=== PATIENT | female | born 1975 | race Caucasian/White ===

== ENCOUNTER 2021-05-25 22:24 | Inpatient (IN) | payer OTHER ==
[~2021-05-25] VITALS: Ht 180.3 cm; Wt 111.0 kg
[2021-05-25 23:03] LABS: BASOPHILS ABSOLUTE AUTO 0.05 K/mm3 (0.00-0.23); BASOPHILS PERCENT AUTO 1 % (0-2); EOSINOPHILS ABSOLUTE AUTO 0.06 K/mm3 (0.00-0.68); EOSINOPHILS PERCENT AUTO 1 % (0-6); Hematocrit 27.8 % (33.0-51.0); Hemoglobin 8.4 g/dL (11.5-16.0); IMMATURE GRAN ABSOLUTE AUTO 0.18 K/mm3 (0.00-0.10); IMMATURE GRAN PERCENT AUTO 2 % (0-1); LYMPHOCYTES ABSOLUTE AUTO 1.12 K/mm3 (0.84-5.20); LYMPHOCYTES PERCENT AUTO 14 % (21-46); MONOCYTES ABSOLUTE AUTO 0.77 K/mm3 (0.16-1.47); MONOCYTES PERCENT AUTO 10 % (4-13); Mean Corpuscular HGB 36.5 pg (26.0-34.0); Mean Corpuscular HGB Conc 30.2 g/dL (31.5-36.5); Mean Corpuscular Volume 121 fL (80-100); Mean Platelet Volume 11.3 fL (9.1-12.4); NEUTROPHILS ABSOLUTE AUTO 5.89 K/mm3 (1.96-9.15); NEUTROPHILS PERCENT AUTO 73 % (41-73); NRBC ABSOLUTE 0.04 K/mm3 (0.00-0.02); NRBC Auto 0.5 /100 WBC (0.0-0.2); Platelet Count 202 K/mm3 (150-400); RDW Coefficient Variation 15.2 % (11.7-14.2); RDW Standard Deviation 67.6 fL (35.1-46.3); White Blood Cell Count 8.07 K/mm3 (4.00-11.30)
[2021-05-25 23:16] LABS: Alanine Aminotransfer (ALT/SGP 62 U/L (12-78); Albumin, Blood 2.6 g/dL (3.4-5.0); Albumin/Globulin Ratio 0.6 (0.8-1.8); Alk Phos 273 U/L (50-136); Anion Gap 15 mmol/L (6-16); Aspartate Aminotrans (AST/SGOT 189 U/L (12-37); Bilirubin, Total 6.3 mg/dL (0.1-1.0); Blood Urea Nitrogen 5 mg/dL (8-24); CO2, Blood 23 mmol/L (21-32); Calcium, Blood 8.9 mg/dL (8.5-10.1); Chloride, Blood 100 mmol/L (98-108); Creatinine, Blood 0.56 mg/dL (0.40-1.00); Ethanol (Alcohol), Blood, Med 11 mg/dL; Globulin, Blood 4.1 g/dL (2.2-4.0); Glomerular Filtration Rate >60 (60-); Glucose, Blood 109 mg/dL (70-99); Potassium, Blood 3.6 mmol/L (3.5-5.5); Sodium, Blood 138 mmol/L (136-145); Total Protein, Blood 6.7 g/dL (6.4-8.2)
[2021-05-25] MEDS ORDERED: NAPROXEN250 M1 PO (23:31)
[2021-05-25] MEDS ORDERED: GABA100 PO (23:31)
[2021-05-25] MEDS ORDERED: METO25ER PO (23:31)
[2021-05-25] MEDS ORDERED: ERGO400 PO (23:31)
[2021-05-25] MEDS ORDERED: FURO80 PO (23:32)
[2021-05-25] MEDS ORDERED: FOLI1 PO (23:32)
[2021-05-25] MEDS ORDERED: PRENATAL TABLE1 EAC2 PO (23:32)
[2021-05-26 05:11] LABS: Influenza A, PCR NEGATIVE (NEGATIVE); Influenza B, PCR NEGATIVE (NEGATIVE); Resp Syncytial Virus, PCR NEGATIVE (NEGATIVE); SARS-Cov-2 (COVID-19) PCR, MMC NEGATIVE (NEGATIVE)
[2021-05-26 05:17] LABS: Albumin, Blood 2.4 g/dL (3.4-5.0); Percent Saturation 87.9 % (15.0-50.0)
--- NOTE | 2021-05-26 05:33 | NUR ---
PT ADMITTED TO FLOOR FROM [facility]. PT WAS ABLE TO STAND AND TRANSFER HERSELF TO THE PCU BED. PT'S SKIN COLOR IN JAUNDICED, HER SCHLERA IS JAUNDICED IN COLOR. PT'S ABDOMEN IS DISTENDED, FIRM, TENDER TO PALPATION. PT REPORTS SHE HAS BEEN HAVING LOOSE STOOLS AT HOME, POOR APPETITE, AND HAS BEEN DECREASING HER ETOH INTAKE, FROM 1 GALLON OF WHISKEY A DAY, TO 1 PINT OF WHISKEY A DAY. PT HAS A HISTORY OF LUPUS. SEIZURE PADS IN PLACE. IV FLUIDS INFUSING TO R HAND IV SITE WITHOUT COMPLICATIONS. LS ARE CLEAR THROUGHOUT. BT'S ARE PRESENT. NO EDEMA TO BLE. PT REPORTS HISTORY OF N/T TO BILATERAL FEET, BLE, AND FINGER TIPS. REVIEWED CALL LIGHT AND ORIENTED TO ROOM. BED ALARM ON FOR SAFETY. FLUIDS AT BEDSIDE.
[2021-05-26] MEDS ORDERED: VITAMIN D5000 UNIT PO (05:47)
[2021-05-26] MEDS ORDERED: PANT40 PO (05:56)
[2021-05-26] MEDS ORDERED: OXYC15ER PO (05:57)
[2021-05-26] MEDS ORDERED: SUCR1 PO (05:59)
[2021-05-26] MEDS ORDERED: ONDA4ODT PO (06:01)
[2021-05-26] MEDS ORDERED: ALBU90OI INH (06:03)
--- NOTE | 2021-05-26 07:12 | NUR ---
SHIFT SUMMARY - MEDICATED X1 WITH 1MG ATIVAN FOR ETOH WITHDRAWAL. OTHERWISE NO ACUTE CHANGES SINCE ADMIT AT 0533. FLUIDS AT BEDSIDE. BED IN LOW POSITION. BED ALARM ON FOR PT SAFETY. REPORT GIVEN THIS AM TO ONCOMING SHIFT.
[2021-05-26 07:39] LABS: International Normalized Ratio 1.19; Prothrombin Time Results 12.4 Sec (9.7-11.5)
[2021-05-26 07:40] LABS: Alanine Aminotransfer (ALT/SGP 51 U/L (12-78); Albumin, Blood 2.4 g/dL (3.4-5.0); Albumin/Globulin Ratio 0.6 (0.8-1.8); Alk Phos 237 U/L (50-136); Anion Gap 11 mmol/L (6-16); Aspartate Aminotrans (AST/SGOT 163 U/L (12-37); Bilirubin, Direct 3.9 mg/dL (0.0-0.3); Bilirubin, Indirect 1.6 mg/dL (0.1-0.7); Bilirubin, Total 5.5 mg/dL (0.1-1.0); Blood Urea Nitrogen 6 mg/dL (8-24); Bun/Creatinine Ratio 11.7 (12.0-20.0); CO2, Blood 26 mmol/L (21-32); Calcium, Blood 8.3 mg/dL (8.5-10.1); Chloride, Blood 100 mmol/L (98-108); Creatinine, Blood 0.51 mg/dL (0.40-1.00); Globulin, Blood 3.9 g/dL (2.2-4.0); Glomerular Filtration Rate >60 (60-); Glucose, Blood 110 mg/dL (70-99); Magnesium, Blood 1.8 mg/dL (1.6-2.4); Phosphorus, Blood 1.8 mg/dL (2.5-4.9); Potassium, Blood 3.7 mmol/L (3.5-5.5); Sodium, Blood 137 mmol/L (136-145); Total Protein, Blood 6.3 g/dL (6.4-8.2)
[2021-05-26 08:48] LABS: BASOPHILS ABSOLUTE AUTO 0.05 K/mm3 (0.00-0.23); BASOPHILS PERCENT AUTO 1 % (0-2); EOSINOPHILS PERCENT AUTO 2 % (0-6); Hematocrit 26.6 % (33.0-51.0); IMMATURE GRAN ABSOLUTE AUTO 0.15 K/mm3 (0.00-0.10); IMMATURE GRAN PERCENT AUTO 3 % (0-1); LYMPHOCYTES ABSOLUTE AUTO 1.03 K/mm3 (0.84-5.20); LYMPHOCYTES PERCENT AUTO 17 % (21-46); MONOCYTES ABSOLUTE AUTO 0.45 K/mm3 (0.16-1.47); MONOCYTES PERCENT AUTO 7 % (4-13); Mean Corpuscular HGB 36.5 pg (26.0-34.0); Mean Corpuscular HGB Conc 30.1 g/dL (31.5-36.5); Mean Corpuscular Volume 122 fL (80-100); NEUTROPHILS ABSOLUTE AUTO 4.33 K/mm3 (1.96-9.15); NEUTROPHILS PERCENT AUTO 71 % (41-73); NRBC ABSOLUTE 0.03 K/mm3 (0.00-0.02); NRBC Auto 0.5 /100 WBC (0.0-0.2); Platelet Count 175 K/mm3 (150-400); RDW Coefficient Variation 15.2 % (11.7-14.2); RDW Standard Deviation 67.8 fL (35.1-46.3); Red Blood Cell Count 2.19 M/mm3 (3.80-5.20); White Blood Cell Count 6.11 K/mm3 (4.00-11.30)
[2021-05-26 10:20] LABS: Source, Urine Clean Catch
[2021-05-26 10:31] LABS: Appearance, Urine Clear (Clear); Blood, Urine Neg (Neg); Color, Urine Amber (P-Yellow); Glucose Qualitative, Urine Neg (Neg); Ketones, Urine 2+ (Neg); Leukocyte Esterase, Urine Neg (Neg); Nitrite, Urine Neg (Neg); Protein, Urine 1+ (Neg); Urobilinogen, Urine 3+ (Normal)
[2021-05-26 10:39] LABS: Bilirubin, Urine 3+ (Neg)
--- NOTE | 2021-05-26 15:41 | NUR ---
2L O2 VIA NC PLACED FOR SP02 CONSISTENTLY <90% WHILE PT IS SLEEPING. PT'S VIVIEN AT BEDSIDE. DR HAMILTON CONTACTED TO COME REVIEW CTA RESULTS WHEN AVAILABLE.
--- NOTE | 2021-05-26 18:17 | NUR ---
PT STATES SHE IS FEELING BETTER THIS EVENING. PT HAS BEEN GIVEN 2 DOSES OF LIBRIUM T/O THE DAY FOR ALCOHOL W/D. TOLERATED WELL. BLANC CATHETER FOR I&O AND POWERGILDE IV PLACED TODAY. PT WENT TO CTA OF ABD, DR HAMILTON NOTIFIED OF RESULTS AND SHE SPOKE WITH THE PT AND PT'S AT BEDSIDE. PT HAS HAD LARGE OUTPUT OF URINE T/O SHIFT. NO ACUTE EVENTS. VSS. WILL CONTINUE TO MONITOR AND GIVE REPORT TO DALE PORTILLO.
--- NOTE | 2021-05-27 06:11 | NUR ---
PT ALERT AND ORIENTED X4, SCORING ON CIWA MEDICATED PER eMAR. PT WAKE UP IN PAIN MD NOTIFIED VERBAL ORDER FOR OXYCODONE. NO MORNING LABS SCHEDULE FOR ORDERED.
[2021-05-27 09:03] LABS: Hematocrit 22.4 % (33.0-51.0); Hemoglobin 6.6 g/dL (11.5-16.0); Mean Corpuscular HGB 35.7 pg (26.0-34.0); Mean Corpuscular HGB Conc 29.5 g/dL (31.5-36.5); Mean Corpuscular Volume 121 fL (80-100); Mean Platelet Volume 11.3 fL (9.1-12.4); NRBC ABSOLUTE 0.06 K/mm3 (0.00-0.02); Platelet Count 171 K/mm3 (150-400); RDW Coefficient Variation 15.1 % (11.7-14.2); RDW Standard Deviation 66.7 fL (35.1-46.3); Red Blood Cell Count 1.85 M/mm3 (3.80-5.20); White Blood Cell Count 6.05 K/mm3 (4.00-11.30)
--- NOTE | 2021-05-27 17:50 | NUR ---
NO ACUTE EVENTS T/O SHIFT. PT HAS HAD GOOD URINE OUTPUT AND JAUNDICE APPEARS TO BE GETTING LESS SEVERE. PT STATES HER ABD FEELS LESS BLOATED AND PAINFUL. PT AND HER AT BEDSIDE HAVE BEEN UPDATED ON PLAN OF CARE. PAIN AND CIWA TREATED PER MD ORDERS, SEE MAY. PT STATUS NOW MEDICAL W TELE. PT RECEIVED A FULL BED BATH TODAY. WILL CONTINUE TO MONITOR AND GIVE REPORT TO DALE PORTILLO.
[2021-05-28 03:47] LABS: Hematocrit 21.1 % (33.0-51.0); Hemoglobin 6.3 g/dL (11.5-16.0); Mean Corpuscular HGB Conc 29.9 g/dL (31.5-36.5); Mean Corpuscular Volume 121 fL (80-100); Mean Platelet Volume 11.1 fL (9.1-12.4); NRBC ABSOLUTE 0.11 K/mm3 (0.00-0.02); NRBC Auto 1.6 /100 WBC (0.0-0.2); Platelet Count 170 K/mm3 (150-400); RDW Coefficient Variation 15.4 % (11.7-14.2); RDW Standard Deviation 67.3 fL (35.1-46.3); Red Blood Cell Count 1.75 M/mm3 (3.80-5.20); White Blood Cell Count 6.71 K/mm3 (4.00-11.30)
[2021-05-28 04:05] LABS: Alanine Aminotransfer (ALT/SGP 51 U/L (12-78); Albumin, Blood 2.8 g/dL (3.4-5.0); Albumin/Globulin Ratio 0.8 (0.8-1.8); Alk Phos 186 U/L (50-136); Anion Gap 6 mmol/L (6-16); Aspartate Aminotrans (AST/SGOT 153 U/L (12-37); Bilirubin, Total 5.1 mg/dL (0.1-1.0); Blood Urea Nitrogen 4 mg/dL (8-24); Bun/Creatinine Ratio 5.8 (12.0-20.0); CO2, Blood 34 mmol/L (21-32); Calcium, Blood 8.9 mg/dL (8.5-10.1); Chloride, Blood 99 mmol/L (98-108); Creatinine, Blood 0.69 mg/dL (0.40-1.00); Globulin, Blood 3.3 g/dL (2.2-4.0); Glomerular Filtration Rate >60 (60-); Glucose, Blood 116 mg/dL (70-99); Potassium, Blood 3.1 mmol/L (3.5-5.5); Sodium, Blood 139 mmol/L (136-145); Total Protein, Blood 6.1 g/dL (6.4-8.2)
--- NOTE | 2021-05-28 06:24 | NUR ---
PT ALERT AND ORIENTED X4, SATs >91% ON 1L O2. PT REPORT PAIN , PAIN ADMINISTERED PER eMAR. CIWA Q2hrs/ TRENDING DOWN medicated per eMAR. BLANC IN PLACE WITH ADEQUATE OUTPUT. STOOL SAMPLE PENDING. CALL LIGHT WITHIN REACH AND SIDE RAIL UP X3.
--- NOTE | 2021-05-28 17:26 | NUR ---
SHIFT SUMMARY: PT CONTINUES A&O T/OUT SHIFT, ANSWERING QUESTIONS APPROPRIATELY, COOPERATIVE WITH CARE. PT DOES ADMIT TO FEELING FUZZY HEADED AT TIMES. PT MEDICATED x1 PER [facility] ORDERS, REPORTS SOME IMPROVEMENT OF SYMPTOMS. O2 SATS MAINTAINED >92% ON RA OR 1L/MIN. SIN TACH ON MONITOR. PT ABLE TO STAND AND TRANSFER SLOWLY W/SBA TO W/C FOR XRAY. PT REPORTS CONTINUED IMPROVEMENT TO ABD DISTENTION. DIURESIS CONTINUES. 1 UNIT PRBC ADMINISTERED TODAY, PT TOLERATED WELL. PT SPOUSE TO AND FROM ROOM T/OUT THE DAY. AT THIS TIME, PT SITTING UP IN BED WITH DINNER TRAY AT BEDSIDE. WILL CONTINUE TO MONITOR AND TREAT ACCORDINGLY UNTIL CHANGE OF SHIFT.
[2021-05-29 05:19] LABS: Hematocrit 23.4 % (33.0-51.0); Mean Corpuscular HGB 34.8 pg (26.0-34.0); Mean Corpuscular HGB Conc 29.9 g/dL (31.5-36.5); Mean Platelet Volume 10.9 fL (9.1-12.4); NRBC ABSOLUTE 0.12 K/mm3 (0.00-0.02); NRBC Auto 1.7 /100 WBC (0.0-0.2); Platelet Count 173 K/mm3 (150-400); RDW Coefficient Variation 21.2 % (11.7-14.2); RDW Standard Deviation 90.3 fL (35.1-46.3); Red Blood Cell Count 2.01 M/mm3 (3.80-5.20); White Blood Cell Count 6.95 K/mm3 (4.00-11.30)
[2021-05-29 05:25] LABS: Mean Corpuscular Volume 116 fL (80-100)
--- NOTE | 2021-05-29 05:43 | NUR ---
SHIFT SUMMARY ASSUMED CARE OF PT AT 1900. PT IS A/OX4. CIWAH SCORE RANGING FROM 21 TO 13. PT STATES SHE FEELS BETTER AFTER TAKING ATIVAN. PT RESTED PEACFULLY UNTIL THIS AM WITH MORNING MEDICATIONS WHEN SHE STATES THAT HER ABD HURTS AND SHE IS FEELING NAUSEATED. CIWAH SHOWED SCORE OF 13. PT STATES SHE IS FEELING WORSE THAN LAST NIGHT, MEDICATED PER EMAR. NO OTHER EVENTS.
[2021-05-29 06:03] LABS: Alanine Aminotransfer (ALT/SGP 48 U/L (12-78); Albumin, Blood 2.7 g/dL (3.4-5.0); Albumin/Globulin Ratio 0.8 (0.8-1.8); Alk Phos 163 U/L (50-136); Anion Gap 7 mmol/L (6-16); Aspartate Aminotrans (AST/SGOT 145 U/L (12-37); Bilirubin, Total 5.3 mg/dL (0.1-1.0); Blood Urea Nitrogen 6 mg/dL (8-24); Bun/Creatinine Ratio 8.7 (12.0-20.0); CO2, Blood 33 mmol/L (21-32); Chloride, Blood 100 mmol/L (98-108); Creatinine, Blood 0.69 mg/dL (0.40-1.00); Globulin, Blood 3.2 g/dL (2.2-4.0); Glomerular Filtration Rate >60 (60-); Glucose, Blood 114 mg/dL (70-99); Magnesium, Blood 2.1 mg/dL (1.6-2.4); Potassium, Blood 3.3 mmol/L (3.5-5.5); Sodium, Blood 140 mmol/L (136-145); Total Protein, Blood 5.9 g/dL (6.4-8.2)
[2021-05-29 08:11] LABS: COMPLEMENT C3, SERUM 156 mg/dL (82-167); COMPLEMENT C4, SERUM 34 mg/dL (12-38)
[2021-05-29 10:13] LABS: RHEUMATOID ARTHRITIS FACTOR <10.0 IU/mL (<14.0)
[2021-05-29 10:52] LABS: IMMATURE RETIC FRACTION 46.7 % (2.3-16.0); RETIC HGB EQUIVALENT 30.9 pg (28.20-36.60); RETICULOCYTE ABSOLUTE 0.1225 M/mm3 (0.0200-0.1100); RETICULOCYTE COUNT PERCENT 6.22 % (0.50-2.50)
--- NOTE | 2021-05-29 14:29 | NUR ---
This care was given during [facility] clinicals.
--- NOTE | 2021-05-29 16:26 | NUR ---
SHIFT SUMMARY Pt has been a/o x 4 today but she has been drowsy at times when awake. Her anxiety/agitation has fluctuated throughout the day and at times she has had visual hallucinations. She has been medicated per the EMAR. This morning she was able to get up to the BSC with SBA but was not able to have a BM. Her olivares is patent with dark yellow output. She has been able to take PO meds and fluids well and has had a decent appetite. She has reported throughout the day general malaise and that she felt better on previous days. Her S.O. has been her throughout the day asking a lot of questions and he seems to be forgetful himself, her daughter also called for an update and the pt asked me to talk with her as well. Her stool sample is still pending since no BM today. The pt reported this morning that she has detoxed at home in the past and said she was thankful to be here this time. She is able to make her needs known and calls but has the potential to be impulsive so the bed alarm is on for safety.
[2021-05-30 04:27] LABS: Hematocrit 25.4 % (33.0-51.0); Hemoglobin 7.5 g/dL (11.5-16.0); Mean Corpuscular HGB 35.2 pg (26.0-34.0); Mean Corpuscular HGB Conc 29.5 g/dL (31.5-36.5); Mean Corpuscular Volume 119 fL (80-100); Mean Platelet Volume 11.3 fL (9.1-12.4); NRBC ABSOLUTE 0.07 K/mm3 (0.00-0.02); NRBC Auto 0.9 /100 WBC (0.0-0.2); Platelet Count 176 K/mm3 (150-400); RDW Coefficient Variation 21.2 % (11.7-14.2); RDW Standard Deviation 92.5 fL (35.1-46.3); Red Blood Cell Count 2.13 M/mm3 (3.80-5.20); White Blood Cell Count 7.47 K/mm3 (4.00-11.30)
[2021-05-30 05:03] LABS: Alanine Aminotransfer (ALT/SGP 60 U/L (12-78); Albumin, Blood 2.7 g/dL (3.4-5.0); Albumin/Globulin Ratio 0.8 (0.8-1.8); Alk Phos 177 U/L (50-136); Anion Gap 8 mmol/L (6-16); Aspartate Aminotrans (AST/SGOT 160 U/L (12-37); Blood Urea Nitrogen 12 mg/dL (8-24); Bun/Creatinine Ratio 15.6 (12.0-20.0); CO2, Blood 33 mmol/L (21-32); Calcium, Blood 9.5 mg/dL (8.5-10.1); Chloride, Blood 99 mmol/L (98-108); Creatinine, Blood 0.77 mg/dL (0.40-1.00); Globulin, Blood 3.6 g/dL (2.2-4.0); Glomerular Filtration Rate >60 (60-); Glucose, Blood 115 mg/dL (70-99); Potassium, Blood 3.7 mmol/L (3.5-5.5); Sodium, Blood 140 mmol/L (136-145); Total Protein, Blood 6.3 g/dL (6.4-8.2)
--- NOTE | 2021-05-30 06:16 | NUR ---
shift summary pt rested well through the night. alert and oriented x2-3. able to make needs known. cooperative with plan of care. sats >94% on 2lnc, able to be on room air when awake. tele reads nsr, rate 91. ciwa 4, 3, 3 - ativan and librium x1 - see emar. olivares in place, driaing to gravity, jacob care performed. no bm. vss. no c/o pain. call light within reach, bed in lowest position. will continue to monitor.
[2021-05-30 14:10] LABS: ALBUMIN 2.9 g/dL (2.9-4.4); ALPHA-1-GLOBULIN 0.3 g/dL (0.0-0.4); ALPHA-2-GLOBULIN 0.6 g/dL (0.4-1.0); GAMMA GLOBULIN 0.9 g/dL (0.4-1.8); GLOBULIN, TOTAL 2.9 g/dL (2.2-3.9); M-SPIKE Not Observed g/dL (Not Observed); PROTEIN, TOTAL, SERUM 5.8 g/dL (6.0-8.5)
--- NOTE | 2021-05-30 17:10 | NUR ---
SHIFT SUMMARY; ASSUMED CARE AT 0700. SLEEPING ON ASSUMING CARE BUT WAKES TO VERBAL STIMULI. A/A/OX4, SKIN AND SCLERA YELLOW. BLANC IN PLACE DRAINING ORANGE COLORED URINE. REPOSITIONS SELF IN BED BUT REPORTS WEAKNESS. VSS DURING SHIFT, NO ACUTE MEDICAL CHANGES, SPOUSE AT BEDSIDE FOR MOST OF DAY, WILL CONTINUE TO MONITOR AND TREAT UNTIL CHANGE OF SHIFT.
--- NOTE | 2021-05-30 18:51 | NUR ---
UPDATED NOTE; WAS SITTING OUTSIDE ROOM IN HALLWAY AT [facility] [employer] WHEN HEARD A SMALL NOISE AND WIMPERING. WENT INTO ROOM AND PT WAS LAYING ON FLOOR ON BACK LAYING OVER LEGS OF BEDSIDE TABLE. STATES WENT TO BATHROOM AND FELL. SEVERAL PEOPLE TO ROOM. NO VISIBLE SIGNS OF INJURY, STATES HIT BACK ON FLOOR. GAIT BELT PLACED, ASSITED BY SEVERAL NURSES TO BED. STATES SHE UNPLUGGED HERSELF, PUT BED RAILS DOWN HERSELF AND WALKED TO BATHROOM, STATES FELL ON WAY BACK. NOTIFIED DR. HAMILTON, NO NEW ORDERS, SHE WILL REEVALUATE IN AM.
--- NOTE | 2021-05-31 05:01 | NUR ---
shift summary pt rested well through the night. alert and oriented, able to make needs knwon. cooperative with plan of care. no longer doing ciwas per md order. condition continues to improve. sats >95% on 2lnc at hours of sleep. tele reads 85. pt wasnt ready for tele to come off just yet, wanted to reassess need during day, along with olivares catheter after her fall in bathroom right before start of shift. olivares draining orange urine - 800ml uop. no bm overnight. vss. c/o pain in lower back - see emar. call light within reach, bed in lowest position. will continue to monitor.
[2021-05-31 05:15] LABS: Hematocrit 26.4 % (33.0-51.0); Hemoglobin 7.8 g/dL (11.5-16.0); Mean Corpuscular HGB 35.3 pg (26.0-34.0); Mean Corpuscular HGB Conc 29.5 g/dL (31.5-36.5); Mean Corpuscular Volume 120 fL (80-100); Mean Platelet Volume 11.5 fL (9.1-12.4); NRBC ABSOLUTE 0.02 K/mm3 (0.00-0.02); NRBC Auto 0.3 /100 WBC (0.0-0.2); Platelet Count 192 K/mm3 (150-400); RDW Coefficient Variation 20.6 % (11.7-14.2); RDW Standard Deviation 91.2 fL (35.1-46.3); Red Blood Cell Count 2.21 M/mm3 (3.80-5.20); White Blood Cell Count 6.87 K/mm3 (4.00-11.30)
[2021-05-31 06:12] LABS: Alanine Aminotransfer (ALT/SGP 58 U/L (12-78); Albumin, Blood 2.6 g/dL (3.4-5.0); Albumin/Globulin Ratio 0.7 (0.8-1.8); Alk Phos 164 U/L (50-136); Anion Gap 7 mmol/L (6-16); Aspartate Aminotrans (AST/SGOT 151 U/L (12-37); Bilirubin, Total 4.7 mg/dL (0.1-1.0); Blood Urea Nitrogen 16 mg/dL (8-24); Bun/Creatinine Ratio 20.2 (12.0-20.0); CO2, Blood 33 mmol/L (21-32); Calcium, Blood 9.4 mg/dL (8.5-10.1); Chloride, Blood 98 mmol/L (98-108); Creatinine, Blood 0.79 mg/dL (0.40-1.00); Globulin, Blood 3.7 g/dL (2.2-4.0); Glomerular Filtration Rate >60 (60-); Glucose, Blood 110 mg/dL (70-99); Potassium, Blood 3.5 mmol/L (3.5-5.5); Sodium, Blood 138 mmol/L (136-145); Total Protein, Blood 6.3 g/dL (6.4-8.2)
--- NOTE | 2021-05-31 11:38 | NUR ---
pt arrived to 345 via wheelchair, from pcu, was able to slowly transfer to bed from chair with one person, spouce in attendence. oriented to room layout and call system, call light in reach.
--- NOTE | 2021-05-31 17:44 | NUR ---
pt doing ok, weak to get to the bsc, spouce in room most of the day, complained of back pain was medicated, which was effective. no further acute changes this shift. call light in reach.
--- NOTE | 2021-06-01 05:51 | NUR ---
Patient is alert and oriented x4. Patient stays mostly in bed. States she is tired. No complains of pain. No signs of distress. Patient is able to take medications and drinking water independently. Able to turn independently. Call light within reach.
--- NOTE | 2021-06-01 16:36 | NUR ---
SHIFT SUMMARY THE PATIENT IS ALERT AND ORIENTED X4, PLEASANT AND COOPERATIVE WITH CARE. THE PATIENT HAS RECEIVED PAIN MEDS X2 THIS SHIFT. PATIENT WORKED WITH PT THIS SHIFT. CARE MANAGEMENT SPOKE TO PATIENT AND SPOUSE TODAY ABOUT POSSIBLE PLACEMENT AT A SNF. THE PATIENT HAS BEEN UP TO THE BSC WITH 1 ASSIST. SPOUSE AT BEDSIDE CURRENTLY. VSS. NO ACUTE CHANGES THIS SHIFT. CALL LIGHT WITHIN REACH BED IN LOWEST POSITION.
--- NOTE | 2021-06-02 05:20 | NUR ---
Patient is alert and oriented x4. No complains of pain. No signs of distress. Patient is more awake tonight. She is able to take her medications and take in food. No signs of agitation. Bed in lowest lowest position call light within reach.
[2021-06-02 08:01] LABS: Hematocrit 24.9 % (33.0-51.0); Hemoglobin 7.5 g/dL (11.5-16.0); Mean Corpuscular HGB 35.4 pg (26.0-34.0); Mean Corpuscular HGB Conc 30.1 g/dL (31.5-36.5); Mean Corpuscular Volume 118 fL (80-100); Mean Platelet Volume 11.6 fL (9.1-12.4); NRBC ABSOLUTE 0.03 K/mm3 (0.00-0.02); NRBC Auto 0.4 /100 WBC (0.0-0.2); Platelet Count 221 K/mm3 (150-400); RDW Coefficient Variation 18.8 % (11.7-14.2); RDW Standard Deviation 81.1 fL (35.1-46.3); Red Blood Cell Count 2.12 M/mm3 (3.80-5.20); White Blood Cell Count 8.25 K/mm3 (4.00-11.30)
[2021-06-02 08:20] LABS: Alanine Aminotransfer (ALT/SGP 61 U/L (12-78); Albumin, Blood 2.5 g/dL (3.4-5.0); Albumin/Globulin Ratio 0.7 (0.8-1.8); Alk Phos 150 U/L (50-136); Anion Gap 6 mmol/L (6-16); Aspartate Aminotrans (AST/SGOT 99 U/L (12-37); Bilirubin, Total 3.5 mg/dL (0.1-1.0); Blood Urea Nitrogen 18 mg/dL (8-24); Bun/Creatinine Ratio 24.4 (12.0-20.0); CO2, Blood 31 mmol/L (21-32); Calcium, Blood 9.2 mg/dL (8.5-10.1); Chloride, Blood 103 mmol/L (98-108); Creatinine, Blood 0.74 mg/dL (0.40-1.00); Globulin, Blood 3.8 g/dL (2.2-4.0); Glomerular Filtration Rate >60 (60-); Glucose, Blood 130 mg/dL (70-99); Sodium, Blood 140 mmol/L (136-145); Total Protein, Blood 6.3 g/dL (6.4-8.2)
--- NOTE | 2021-06-02 16:46 | NUR ---
PATIENT APPEARS TO BE IMPROVING IN STRENGTH. TODAY, SHE WAS UP SITTING IN THE CHIAR FOR A WHILE. SHE STOOD, WITOUT USING HER WALKER. NO DIZZYNESS NOTED AT THAT TIME. SHE FEELS LIKE SHE IS GAINING STENGTH/HEALTH. HGB 7.5. PAIN WAS 8/10 AT BEGINNING OF SHIFT AND SHE RECIEVED PRN ROXICODONE, WHICH WAS EFFECTIVE. PAIN STAYED MANAGABLE UNTIL 1430 WHEN ANOTHER PRN OF BETZAIDA WAS GIVEN, AGAIN WITH EFFECTIVENESS. PAIN WAS NOT DESCRIBED ABDOMINAL, BUT BACK PAIN. PATIENT ALSO REPORTS THAT HER URINE STILL LOOKS A LITTLE LIKE ORANGE JUICE- KIND OF THICK AND SHE WAS WONDERING ABOUT A UA. SHE HAD SEVERAL LOOSE BOWEL MOVEMENTS TODAY. PATIENTS MALOU FLORES APPEARS TO HAVE AN AREA OF REDNESS BY INSERTIONS SITE, BUT THIS LOOKS MORE LIKE DRIED BLOOD THAN AN INFECTED SITE. PATIENTS WAS VISITING THIS AM, AND HELPED WITH A BED BATH. SHE HAS NO OTHER CONCERNS AT THIS TIME AND IS HOPFUL TO DISCHARGE SOON TO SNF.
[2021-06-03 05:37] LABS: Hematocrit 26.6 % (33.0-51.0); Hemoglobin 8.1 g/dL (11.5-16.0); Mean Corpuscular HGB 35.7 pg (26.0-34.0); Mean Corpuscular HGB Conc 30.5 g/dL (31.5-36.5); Mean Corpuscular Volume 117 fL (80-100); Mean Platelet Volume 11.4 fL (9.1-12.4); Platelet Count 221 K/mm3 (150-400); Red Blood Cell Count 2.27 M/mm3 (3.80-5.20); White Blood Cell Count 6.68 K/mm3 (4.00-11.30)
--- NOTE | 2021-06-03 05:52 | NUR ---
Patient is alert and oriented x4. She is more active now than the other nights. She is ambulatory. She uses the walker to go to the restroom, one person assist is needed. No complains of pain. No signs of distress. Urine collected for culture. Patient slept all night. Call light within reach.
[2021-06-03 05:59] LABS: Alanine Aminotransfer (ALT/SGP 65 U/L (12-78); Albumin, Blood 2.5 g/dL (3.4-5.0); Albumin/Globulin Ratio 0.7 (0.8-1.8); Alk Phos 157 U/L (50-136); Anion Gap 8 mmol/L (6-16); Aspartate Aminotrans (AST/SGOT 134 U/L (12-37); Bilirubin, Total 3.1 mg/dL (0.1-1.0); Blood Urea Nitrogen 21 mg/dL (8-24); Bun/Creatinine Ratio 25.7 (12.0-20.0); CO2, Blood 30 mmol/L (21-32); Calcium, Blood 9.2 mg/dL (8.5-10.1); Chloride, Blood 102 mmol/L (98-108); Creatinine, Blood 0.82 mg/dL (0.40-1.00); Globulin, Blood 3.7 g/dL (2.2-4.0); Glomerular Filtration Rate >60 (60-); Glucose, Blood 97 mg/dL (70-99); Sodium, Blood 140 mmol/L (136-145); Total Protein, Blood 6.2 g/dL (6.4-8.2)
[2021-06-03 07:52] LABS: Source, Urine Clean Catch
[2021-06-03 07:57] LABS: Blood, Urine Neg (Neg); Glucose Qualitative, Urine Neg (Neg); Ketones, Urine Neg (Neg); Leukocyte Esterase, Urine 1+ (Neg); Nitrite, Urine Neg (Neg); Protein, Urine 1+ (Neg); Specific Gravity, Urine 1.015 (1.003-1.022); Urobilinogen, Urine 3+ (Normal)
[2021-06-03 08:03] LABS: Appearance, Urine Hazy (Clear); Bilirubin, Urine 1+ (Neg); Color, Urine Amber (P-Yellow)
[2021-06-03 08:06] LABS: Bacteria Few /hpf; Calcium Oxalate Crystals Few /hpf; Red Blood Cells, Urine 0-2 /hpf (0-2)
[2021-06-03 08:07] LABS: Squamous Epithelial Cells Few /hpf (Few)
--- NOTE | 2021-06-03 17:35 | NUR ---
SHIFT SUMMARY PATIENT RESTING IN BED. A&O X4. PATIENT GETTING UP TO RESTROOM 1PA WITH WALKER. PATIENT FELT MUCH IMPROVEMENT IN HER STRENGTH AND MOVEMENT AFTER TAKING SOLUMEDROL. GOOD APPETITE TODAY. FAMILY AT BEDSIDE MOST OF DAY. PLAN TO D/C TO SNF TOMORROW. WILL CONTINUE TO MONITOR.
--- NOTE | 2021-06-04 03:51 | NUR ---
SHIFT SUMMARY PT AOX3-4. FORGETFUL AT TIMES. VSS. PT UP IN BED, USED THE BATHROOM ONCE, ABLE TO TOLERATE AMBULATION, FELT DIZZY WHEN TRYING TO GET UP IN THE TOILET. FWW AND GB IN PLACED. FORGOT TO USE CALL LIGHT ONCE, ATTEMPT TO GET OUT BED ON HER OWN. EASILY REDIRECTED. BED ALARM IN PLACED. PT ALSO WENT TO BSC THIS MORNING, FELT OUT OF BALANCED AGAIN. PLAN TO DC TODAY. WILL CONTINUE TO MONITOR AND WILL PROVIDE REPORT TO ONCOMING NURSE.
[2021-06-04 05:12] LABS: Hematocrit 27.7 % (33.0-51.0); Hemoglobin 8.4 g/dL (11.5-16.0); Mean Corpuscular HGB 35.7 pg (26.0-34.0); Mean Corpuscular HGB Conc 30.3 g/dL (31.5-36.5); Mean Corpuscular Volume 118 fL (80-100); Mean Platelet Volume 11.5 fL (9.1-12.4); Platelet Count 246 K/mm3 (150-400); RDW Coefficient Variation 18.2 % (11.7-14.2); RDW Standard Deviation 79.5 fL (35.1-46.3); Red Blood Cell Count 2.35 M/mm3 (3.80-5.20); White Blood Cell Count 6.53 K/mm3 (4.00-11.30)
[2021-06-04 06:13] LABS: Alanine Aminotransfer (ALT/SGP 84 U/L (12-78); Albumin, Blood 2.8 g/dL (3.4-5.0); Albumin/Globulin Ratio 0.7 (0.8-1.8); Alk Phos 162 U/L (50-136); Anion Gap 8 mmol/L (6-16); Aspartate Aminotrans (AST/SGOT 126 U/L (12-37); Bilirubin, Total 3.2 mg/dL (0.1-1.0); Blood Urea Nitrogen 17 mg/dL (8-24); Bun/Creatinine Ratio 25.5 (12.0-20.0); CO2, Blood 27 mmol/L (21-32); Calcium, Blood 9.4 mg/dL (8.5-10.1); Chloride, Blood 103 mmol/L (98-108); Creatinine, Blood 0.67 mg/dL (0.40-1.00); Glomerular Filtration Rate >60 (60-); Glucose, Blood 169 mg/dL (70-99); Potassium, Blood 3.9 mmol/L (3.5-5.5); Sodium, Blood 138 mmol/L (136-145); Total Protein, Blood 6.8 g/dL (6.4-8.2)
[2021-06-04 09:02] LABS: CPK Creatine Kinase 16 U/L (26-193)
[2021-06-04 10:22] LABS: Creatine Kinase MB <1.0 ng/mL (0.0-3.6); Creatine Kinase MB Index Unable to Calculate (0.0-4.0)
--- NOTE | 2021-06-04 16:21 | NUR ---
PATIENT A/OX4 THIS SHIFT. VSS, ON RA. UP WITH FWW, GB AND SBA TO RESTROOM. WORKED WITH PT. POWERGLIDE TO PAUL WNL AND SL. PATIENT HAD 3 LOOSE BM'S THIS SHIFT, TAKING LACTULOSE. CONTINENT OF URINE. SKIN INTACT. AT BEDSIDE FOR MOST OF THE DAY. PATIENT IS HOPING TO GO TO SNF AT DISCHARGE TO CONTINUE TO GET STRONGER. POWERGLIDE TO PAUL WNL AND SL. PATIENT CALM AND COOPERATIVE WITH CARE AND CALLS APPROPRIATELY FOR ASSISTANCE.
--- NOTE | 2021-06-05 04:04 | NUR ---
SHIFT SUMMARY A/OX4 THIS SHIFT. CALLS APPROPRIATELY FOR ASSISTANCE. UP SBA WITH FWW TO BATHROOM. DENIES PAIN AT THIS TIME. VSS, NO ACUTE CHANGES. BED IN LOWEST POSITION WITH CALL LIGHT IN REACH. WILL CONTINUE TO MONITOR AND REPORT TO ONCOMING RN.
[2021-06-05 05:25] LABS: Hematocrit 27.7 % (33.0-51.0); Hemoglobin 8.3 g/dL (11.5-16.0); Mean Corpuscular HGB 35.6 pg (26.0-34.0); Mean Corpuscular Volume 119 fL (80-100); Mean Platelet Volume 11.3 fL (9.1-12.4); NRBC ABSOLUTE 0.02 K/mm3 (0.00-0.02); NRBC Auto 0.3 /100 WBC (0.0-0.2); Platelet Count 257 K/mm3 (150-400); RDW Coefficient Variation 18.1 % (11.7-14.2); RDW Standard Deviation 80.1 fL (35.1-46.3); Red Blood Cell Count 2.33 M/mm3 (3.80-5.20); White Blood Cell Count 6.31 K/mm3 (4.00-11.30)
[2021-06-05 05:41] LABS: Alanine Aminotransfer (ALT/SGP 77 U/L (12-78); Albumin, Blood 2.5 g/dL (3.4-5.0); Albumin/Globulin Ratio 0.7 (0.8-1.8); Alk Phos 152 U/L (50-136); Anion Gap 6 mmol/L (6-16); Aspartate Aminotrans (AST/SGOT 102 U/L (12-37); Bilirubin, Total 2.1 mg/dL (0.1-1.0); Blood Urea Nitrogen 21 mg/dL (8-24); Bun/Creatinine Ratio 25.4 (12.0-20.0); CO2, Blood 29 mmol/L (21-32); Calcium, Blood 9.1 mg/dL (8.5-10.1); Chloride, Blood 107 mmol/L (98-108); Creatinine, Blood 0.83 mg/dL (0.40-1.00); Globulin, Blood 3.7 g/dL (2.2-4.0); Glomerular Filtration Rate >60 (60-); Glucose, Blood 101 mg/dL (70-99); Potassium, Blood 3.9 mmol/L (3.5-5.5); Sodium, Blood 142 mmol/L (136-145); Total Protein, Blood 6.2 g/dL (6.4-8.2)
--- NOTE | 2021-06-05 17:57 | NUR ---
PATIENT A/OX4, UP WITH FWW AND 1 ASSIST IN ROOM. VSS, ON RA. WORKED WITH PT/OT TODAY, BOTH ARE RECOMMENDING HOME WITH HOME HEALTH. PATIENT C/O BACK PAIN AND OXYCODONE GIVEN X1 TO TREAT WITH GOOD RELIEF. PLAN IS FOR D/C TOMORROW WITH HOME HEALTH. PATIENT LIVES WITH HER .
--- NOTE | 2021-06-06 04:25 | NUR ---
SHIFT SUMMARY ADMITTED FOR ALCOHOLIC HEPATITIS. HOPEFUL FOR DC HOME W/HH TODAY. POWERGLIDE IN JENNIFERE. SHE IS A&O X4. GAVI'S DC'D. WE HAVE BEEN DIURESING HER. SWOLLEN ABDOMEN IS IMPROVING. PREDNISONE PO IS SCHEDULED. HEPATIC DIET. 1 ASSIST W/FWW - BRP. OXYCODONE IS PRN FOR CHRONIC BACK PAIN, NONE REQUESTED THIS SHIFT.
[2021-06-06 05:35] LABS: Hemoglobin 9.3 g/dL (11.5-16.0); Mean Corpuscular Volume 116 fL (80-100); Platelet Count 268 K/mm3 (150-400); RDW Coefficient Variation 17.5 % (11.7-14.2); RDW Standard Deviation 76.1 fL (35.1-46.3); Red Blood Cell Count 2.58 M/mm3 (3.80-5.20)
[2021-06-06 05:54] LABS: Alanine Aminotransfer (ALT/SGP 95 U/L (12-78); Albumin, Blood 2.8 g/dL (3.4-5.0); Albumin/Globulin Ratio 0.8 (0.8-1.8); Alk Phos 170 U/L (50-136); Anion Gap 7 mmol/L (6-16); Aspartate Aminotrans (AST/SGOT 129 U/L (12-37); Bilirubin, Total 2.1 mg/dL (0.1-1.0); Blood Urea Nitrogen 26 mg/dL (8-24); Bun/Creatinine Ratio 30.8 (12.0-20.0); CO2, Blood 27 mmol/L (21-32); Calcium, Blood 9.1 mg/dL (8.5-10.1); Chloride, Blood 108 mmol/L (98-108); Creatinine, Blood 0.84 mg/dL (0.40-1.00); Globulin, Blood 3.5 g/dL (2.2-4.0); Glomerular Filtration Rate >60 (60-); Glucose, Blood 89 mg/dL (70-99); Potassium, Blood 4.1 mmol/L (3.5-5.5); Sodium, Blood 142 mmol/L (136-145); Total Protein, Blood 6.3 g/dL (6.4-8.2)
--- NOTE | 2021-06-06 07:14 | NUR ---
RN recvd handoff of patient care from LINDSEY Diaz Patient was asleep in bed and appeared to be in no distress
[2021-06-06] MEDS ORDERED: Vitamin D1000 UNI1 PO (11:59)
[2021-06-06] MEDS ORDERED: JUVEN PACKET1 EAC3 PO (12:00)
[2021-06-06] MEDS ORDERED: PRED20 PO ×2 (12:03→12:05)
[2021-06-06] MEDS ORDERED: VENL150ER PO (12:06)
[2021-06-06] MEDS ORDERED: OXAYDO5 M1 PO (12:09)
--- NOTE | 2021-06-06 15:48 | NUR ---
Received referral from nurse healthcare administrator ([employer]) on 06/06/2021. Patient is to discharge 06/06/2021 with orders for home health and elected [facility]. Patient was admitted to [facility] on 05/26/2021 due to alcoholic hepatitis. Review of patient's records indicate that patient does not have a PCP. Informed nurse healthcare administrator of the need to establish care with a PCP who can then make a referral for home health. No further interventions Amy Odom Referral Liaison
--- NOTE | 2021-06-06 16:01 | NUR ---
PATIENT WAS DISCHARGED FROM THE UNIT TO HOME AT 1540. SHE WAS ACCOMPANIED BY STAFF AND HER . RN REVIEWED DISHCARGE INSTRUCTIONS AND MEDICATION LIST W/ PATIENT. SHE HAD NO FURTHER QUESTIONS.
== END 2021-06-06 15:51 | disposition home health service (06) | DRG 432 ==
LOC: ER 22:24 → EDBEDREQ 05-26 04:20 → MEDS 05-26 04:22 → ERHOLD 05-26 04:22 → PCU 05-26 04:22 → MEDS 05-31 11:33
PROVIDERS: Family Medicine; Internal Medicine; Student in an Organized Health Care Education/Training Program; ADMIT Internal Medicine
PROC: HZ2ZZZZ Detoxification Services for Substance Abuse Treatment (ICD-10-PCS; principal; 2021-05-26)
PROC: 30233N1 Transfusion of Nonautologous Red Blood Cells into Peripheral Vein, Percutaneous Approach (ICD-10-PCS; 2021-05-28)
DX: K70.11 Alcoholic hepatitis with ascites (principal); E43 Unspecified severe protein-calorie malnutrition; F10.239 Alcohol dependence with withdrawal, unspecified; Z20.822 Contact with and (suspected) exposure to COVID-19; R60.1 Generalized edema; R07.89 Other chest pain; F41.9 Anxiety disorder, unspecified; K70.30 Alcoholic cirrhosis of liver without ascites; M54.9 Dorsalgia, unspecified; F32.A Depression, unspecified; M35.3 Polymyalgia rheumatica; D53.9 Nutritional anemia, unspecified; I10 Essential (primary) hypertension; Z68.33 Body mass index [BMI] 33.0-33.9, adult; M32.9 Systemic lupus erythematosus, unspecified; K76.0 Fatty (change of) liver, not elsewhere classified; Z90.49 Acquired absence of other specified parts of digestive tract; Z79.899 Other long term (current) drug therapy; Y90.0 Blood alcohol level of less than 20 mg/100 ml
CPT/HCPCS: 0241U; 36415; 36430; 51702; 72100; 72202; 74177; 76705; 80048; 80053; 80076; 81001; 82040; 82140; 82533; 82550; 82553; 82607; 82728; 82746; 83540; 83550; 83615; 83690; 83735; 84100; 84165; 84484; 85025; 85027; 85045; 85610; 85651; 86038; 86140; 86160; 86431; 86850; 86900; 86901; 86923; 87015; 87045; 87046; 87086; 87205; 87899; 93005; 93010; 94640; 94762; 96365; 96375; 97110; 97161; 97166; 97530; 97535; 99285-25; A9270; C1751; C9113; G0480; J0696; J1940; J2060; J2916; J2930; J3411; J3420; J3475; J7030; J7042; J7512; P9016; P9046; Q9967

== ENCOUNTER 2021-07-18 22:35 | Emergency (ER) | payer OTHER ==
[~2021-07-18] VITALS: Ht 180.3 cm; Wt 105.2 kg
[~2021-07-18 22:35] MED LIST: ALBU90OI INH; ERGO400 PO; FOLI1 PO; FURO80 PO; GABA100 PO; JUVEN PACKET1 EAC3 PO; METO25ER PO; NAPROXEN250 M1 PO; ONDA4ODT PO; OXAYDO5 M1 PO; OXYC15ER PO; PANT40 PO; PRED20 PO; PRENATAL TABLE1 EAC2 PO; SUCR1 PO; VENL150ER PO; VITAMIN D5000 UNIT PO; Vitamin D1000 UNI1 PO
[2021-07-18 23:13] LABS: BASOPHILS ABSOLUTE AUTO 0.03 K/mm3 (0.00-0.23); BASOPHILS PERCENT AUTO 0 % (0-2); EOSINOPHILS ABSOLUTE AUTO 0.05 K/mm3 (0.00-0.68); EOSINOPHILS PERCENT AUTO 1 % (0-6); Hematocrit 34.9 % (33.0-51.0); Hemoglobin 11.7 g/dL (11.5-16.0); IMMATURE GRAN ABSOLUTE AUTO 0.09 K/mm3 (0.00-0.10); IMMATURE GRAN PERCENT AUTO 1 % (0-1); LYMPHOCYTES ABSOLUTE AUTO 2.32 K/mm3 (0.84-5.20); LYMPHOCYTES PERCENT AUTO 24 % (21-46); MONOCYTES ABSOLUTE AUTO 0.46 K/mm3 (0.16-1.47); MONOCYTES PERCENT AUTO 5 % (4-13); Mean Corpuscular HGB 33.1 pg (26.0-34.0); Mean Corpuscular HGB Conc 33.5 g/dL (31.5-36.5); Mean Corpuscular Volume 99 fL (80-100); Mean Platelet Volume 10.6 fL (9.1-12.4); NEUTROPHILS ABSOLUTE AUTO 6.79 K/mm3 (1.96-9.15); NEUTROPHILS PERCENT AUTO 70 % (41-73); Platelet Count 170 K/mm3 (150-400); RDW Coefficient Variation 12.6 % (11.7-14.2); RDW Standard Deviation 45.1 fL (35.1-46.3); Red Blood Cell Count 3.53 M/mm3 (3.80-5.20); White Blood Cell Count 9.74 K/mm3 (4.00-11.30)
[2021-07-18 23:31] LABS: Alanine Aminotransfer (ALT/SGP 67 U/L (12-78); Albumin, Blood 3.4 g/dL (3.4-5.0); Alk Phos 96 U/L (50-136); Anion Gap 6 mmol/L (6-16); Aspartate Aminotrans (AST/SGOT 37 U/L (12-37); Bilirubin, Total 0.6 mg/dL (0.1-1.0); Blood Urea Nitrogen 12 mg/dL (8-24); Bun/Creatinine Ratio 18.2 (12.0-20.0); CO2, Blood 26 mmol/L (21-32); Calcium, Blood 9.1 mg/dL (8.5-10.1); Chloride, Blood 108 mmol/L (98-108); Creatinine, Blood 0.66 mg/dL (0.40-1.00); Globulin, Blood 3.4 g/dL (2.2-4.0); Glomerular Filtration Rate >60 (60-); Glucose, Blood 123 mg/dL (70-99); Potassium, Blood 4.1 mmol/L (3.5-5.5); Sodium, Blood 140 mmol/L (136-145); Total Protein, Blood 6.8 g/dL (6.4-8.2)
[2021-07-19 00:37] LABS: Free Thyroxine 0.85 ng/dL (0.70-1.60)
[2021-07-19] MEDS ORDERED: MECL25 PO (01:35)
== END 2021-07-19 02:10 | disposition home or self-care (01) ==
LOC: ER 22:35
PROVIDERS: Emergency Medicine
DX: M35.3 Polymyalgia rheumatica (principal); R42 Dizziness and giddiness; I10 Essential (primary) hypertension; Z87.891 Personal history of nicotine dependence; Z79.899 Other long term (current) drug therapy
CPT/HCPCS: 80053; 82140; 84439; 84443; 85025; 93005; 93010; 96374; 99284-25; A9270; J2270; J7030; J7512

== ENCOUNTER 2021-08-28 11:31 | Emergency (ER) | payer OTHER ==
[~2021-08-28] VITALS: Ht 180.3 cm; Wt 109.8 kg
[~2021-08-28 11:31] MED LIST changes: +MECL25 PO
[2021-08-28 13:39] LABS: Albumin/Globulin Ratio 0.8 (0.8-1.8); Bilirubin, Direct 1.1 mg/dL (0.0-0.3); Bilirubin, Indirect 1.4 mg/dL (0.1-0.7); Bilirubin, Total 2.5 mg/dL (0.1-1.0); Bun/Creatinine Ratio 4.8 (12.0-20.0); Calcium, Blood 8.8 mg/dL (8.5-10.1); Creatinine, Blood 0.63 mg/dL (0.40-1.00); Globulin, Blood 3.7 g/dL (2.2-4.0); Potassium, Blood 3.7 mmol/L (3.5-5.5); Total Protein, Blood 6.7 g/dL (6.4-8.2)
[2021-08-28 13:52] LABS: International Normalized Ratio 1.21; Prothrombin Time Results 12.5 Sec (9.7-11.5)
[2021-08-28 15:40] LABS: BASOPHILS ABSOLUTE AUTO 0.03 K/mm3 (0.00-0.23); BASOPHILS PERCENT AUTO 1 % (0-2); EOSINOPHILS ABSOLUTE AUTO 0.09 K/mm3 (0.00-0.68); EOSINOPHILS PERCENT AUTO 2 % (0-6); Hematocrit 39.4 % (33.0-51.0); Hemoglobin 12.3 g/dL (11.5-16.0); IMMATURE GRAN ABSOLUTE AUTO 0.04 K/mm3 (0.00-0.10); IMMATURE GRAN PERCENT AUTO 1 % (0-1); LYMPHOCYTES ABSOLUTE AUTO 0.92 K/mm3 (0.84-5.20); LYMPHOCYTES PERCENT AUTO 18 % (21-46); MONOCYTES ABSOLUTE AUTO 0.49 K/mm3 (0.16-1.47); MONOCYTES PERCENT AUTO 10 % (4-13); Mean Corpuscular HGB 32.6 pg (26.0-34.0); Mean Corpuscular HGB Conc 31.2 g/dL (31.5-36.5); Mean Corpuscular Volume 105 fL (80-100); Mean Platelet Volume 11.6 fL (9.1-12.4); NEUTROPHILS ABSOLUTE AUTO 3.59 K/mm3 (1.96-9.15); NEUTROPHILS PERCENT AUTO 70 % (41-73); NRBC ABSOLUTE 0.02 K/mm3 (0.00-0.02); NRBC Auto 0.4 /100 WBC (0.0-0.2); Platelet Count 143 K/mm3 (150-400); RDW Standard Deviation 57.8 fL (35.1-46.3); Red Blood Cell Count 3.77 M/mm3 (3.80-5.20); White Blood Cell Count 5.16 K/mm3 (4.00-11.30)
[2021-08-28] MEDS ORDERED: PROM25 PO (19:41)
[2021-08-28] MEDS ORDERED: CHLO25 PO (19:41)
== END 2021-08-28 19:55 | disposition home or self-care (01) ==
LOC: ER 11:31
PROVIDERS: Physician Assistant
DX: K70.10 Alcoholic hepatitis without ascites (principal); I10 Essential (primary) hypertension; M32.9 Systemic lupus erythematosus, unspecified; Z79.52 Long term (current) use of systemic steroids; Z79.899 Other long term (current) drug therapy
CPT/HCPCS: 36415; 80048; 80076; 83690; 85025; 85610; 86850; 86900; 86901; A9270; J2405; J2550; J7030

== ENCOUNTER 2021-11-29 19:06 | Emergency (ER) | payer OTHER ==
[~2021-11-29] VITALS: Ht 180.3 cm; Wt 103.9 kg
[~2021-11-29 19:06] MED LIST changes: +CHLO25 PO; +PROM25 PO
[2021-11-29 20:01] LABS: BASOPHILS ABSOLUTE AUTO 0.03 K/mm3 (0.00-0.23); BASOPHILS PERCENT AUTO 1 % (0-2); EOSINOPHILS ABSOLUTE AUTO 0.05 K/mm3 (0.00-0.68); EOSINOPHILS PERCENT AUTO 1 % (0-6); Hematocrit 36.7 % (33.0-51.0); Hemoglobin 12.2 g/dL (11.5-16.0); IMMATURE GRAN ABSOLUTE AUTO 0.03 K/mm3 (0.00-0.10); IMMATURE GRAN PERCENT AUTO 1 % (0-1); LYMPHOCYTES ABSOLUTE AUTO 2.06 K/mm3 (0.84-5.20); LYMPHOCYTES PERCENT AUTO 36 % (21-46); MONOCYTES PERCENT AUTO 7 % (4-13); Mean Corpuscular HGB 33.2 pg (26.0-34.0); Mean Corpuscular HGB Conc 33.2 g/dL (31.5-36.5); Mean Corpuscular Volume 100 fL (80-100); Mean Platelet Volume 10.2 fL (9.1-12.4); NEUTROPHILS ABSOLUTE AUTO 3.22 K/mm3 (1.96-9.15); NEUTROPHILS PERCENT AUTO 56 % (41-73); Platelet Count 127 K/mm3 (150-400); RDW Coefficient Variation 14.2 % (11.7-14.2); RDW Standard Deviation 52.2 fL (35.1-46.3); Red Blood Cell Count 3.67 M/mm3 (3.80-5.20); White Blood Cell Count 5.79 K/mm3 (4.00-11.30)
[2021-11-29 20:20] LABS: Albumin, Blood 3.5 g/dL (3.4-5.0); Albumin/Globulin Ratio 0.9 (0.8-1.8); Bilirubin, Total 1.8 mg/dL (0.1-1.0); Bun/Creatinine Ratio 10.3 (12.0-20.0); Creatinine, Blood 0.68 mg/dL (0.40-1.00); Potassium, Blood 3.7 mmol/L (3.5-5.5); Total Protein, Blood 7.5 g/dL (6.4-8.2)
[2021-11-29 20:39] LABS: Magnesium, Blood 1.8 mg/dL (1.6-2.4)
[2021-11-29 21:29] LABS: Influenza A, PCR NEGATIVE (NEGATIVE); Influenza B, PCR NEGATIVE (NEGATIVE); Resp Syncytial Virus, PCR NEGATIVE (NEGATIVE); SARS-Cov-2 (COVID-19) PCR, MMC NEGATIVE (NEGATIVE)
== END 2021-11-30 00:04 | disposition home or self-care (01) ==
LOC: ER 19:06
PROVIDERS: Student in an Organized Health Care Education/Training Program
DX: K52.9 Noninfective gastroenteritis and colitis, unspecified (principal); F10.10 Alcohol abuse, uncomplicated; K42.9 Umbilical hernia without obstruction or gangrene; I10 Essential (primary) hypertension; Z79.899 Other long term (current) drug therapy; Z79.52 Long term (current) use of systemic steroids; Z20.822 Contact with and (suspected) exposure to COVID-19
CPT/HCPCS: 0241U; 36415; 71045; 74177; 80053; 83690; 83735; 84484; 85025; 93005; 93010; 96361; 96374-59; 96375; 99285-25; A9270; J1790; J2405; J3010; J7030; Q9967

== ENCOUNTER → 2021-12-13 | Outpatient (CLI) | payer OTHER | END | disposition home or self-care (01) | LOC: LAB 13:40 → LAB SHORT 13:40 | DX: R30.9 Painful micturition, unspecified (principal) | CPT/HCPCS: 87086 ==

== ENCOUNTER 2022-02-25 01:04 | Day surgery (SDC) | payer OTHER | END 2022-02-25 23:21 | disposition home or self-care (01) | LOC: ATC 01:04 | DX: M06.09 Rheumatoid arthritis without rheumatoid factor, multiple sites (principal); M06.4 Inflammatory polyarthropathy; M70.10 Bursitis, unspecified hand; Z90.711 Acquired absence of uterus with remaining cervical stump; Z87.891 Personal history of nicotine dependence; K70.10 Alcoholic hepatitis without ascites | CPT/HCPCS: 96413; 96415; J7050; Q5103 ==

== ENCOUNTER 2022-03-13 00:24 | Day surgery (SDC) | payer OTHER ==
[~2022-03-13] VITALS: Wt 100.8 kg
== END 2022-03-13 11:43 | disposition home or self-care (01) ==
LOC: ATC 00:24
DX: M70.10 Bursitis, unspecified hand (principal); M06.09 Rheumatoid arthritis without rheumatoid factor, multiple sites; M06.4 Inflammatory polyarthropathy; Z87.891 Personal history of nicotine dependence; K70.10 Alcoholic hepatitis without ascites
CPT/HCPCS: 96413; 96415; J7050; Q5103

== ENCOUNTER 2022-06-09 12:32 | Inpatient (IN) | payer OTHER ==
[~2022-06-09] VITALS: Ht 180.3 cm; Wt 96.9 kg
[2022-06-09 12:59] LABS: BASOPHILS ABSOLUTE AUTO 0.05 K/mm3 (0.00-0.23); BASOPHILS PERCENT AUTO 1 % (0-2); EOSINOPHILS ABSOLUTE AUTO 0.04 K/mm3 (0.00-0.68); EOSINOPHILS PERCENT AUTO 1 % (0-6); Hematocrit 34.5 % (33.0-51.0); Hemoglobin 11.2 g/dL (11.5-16.0); IMMATURE GRAN ABSOLUTE AUTO 0.07 K/mm3 (0.00-0.10); IMMATURE GRAN PERCENT AUTO 1 % (0-1); LYMPHOCYTES ABSOLUTE AUTO 1.17 K/mm3 (0.84-5.20); LYMPHOCYTES PERCENT AUTO 17 % (21-46); MONOCYTES ABSOLUTE AUTO 0.67 K/mm3 (0.16-1.47); MONOCYTES PERCENT AUTO 10 % (4-13); Mean Corpuscular HGB 34.5 pg (26.0-34.0); Mean Corpuscular HGB Conc 32.5 g/dL (31.5-36.5); Mean Corpuscular Volume 106 fL (80-100); Mean Platelet Volume 10.8 fL (9.1-12.4); NEUTROPHILS ABSOLUTE AUTO 4.98 K/mm3 (1.96-9.15); NEUTROPHILS PERCENT AUTO 71 % (41-73); NRBC ABSOLUTE 0.04 K/mm3 (0.00-0.02); NRBC Auto 0.6 /100 WBC (0.0-0.2); Platelet Count 102 K/mm3 (150-400); RDW Coefficient Variation 15.4 % (11.7-14.2); RDW Standard Deviation 58.5 fL (35.1-46.3); Red Blood Cell Count 3.25 M/mm3 (3.80-5.20); White Blood Cell Count 6.98 K/mm3 (4.00-11.30)
[2022-06-09 13:14] LABS: Albumin, Blood 3.7 g/dL (3.4-5.0); Albumin/Globulin Ratio 0.8 (0.8-1.8); Bilirubin, Total 2.3 mg/dL (0.1-1.0); Bun/Creatinine Ratio 5.7 (12.0-20.0); Calcium, Blood 8.3 mg/dL (8.5-10.1); Creatinine, Blood 0.71 mg/dL (0.40-1.00); Globulin, Blood 4.4 g/dL (2.2-4.0); Potassium, Blood 4.1 mmol/L (3.5-5.5); Total Protein, Blood 8.1 g/dL (6.4-8.2)
[2022-06-09] MEDS ORDERED: ACAMPROSATE CA333 MG PO (14:42)
[2022-06-09] MEDS ORDERED: Ativan1 MG PO (14:43)
[2022-06-09] MEDS ORDERED: FURO20 (14:43)
[2022-06-09] MEDS ORDERED: PALI3TAB (14:44)
[2022-06-09] MEDS ORDERED: MAGNESIUM OXID500 MG PO (14:44)
[2022-06-09] MEDS ORDERED: GABA400 PO (14:45)
[2022-06-09] MEDS ORDERED: SPIR25 PO (14:45)
[2022-06-09 15:23] LABS: Magnesium, Blood 1.8 mg/dL (1.6-2.4)
[2022-06-09 15:24] LABS: Phosphorus, Blood 1.5 mg/dL (2.5-4.9)
[2022-06-09 15:30] LABS: Base Excess Venous -19.1 mmol/L; Bicarbonate Venous 11.3 mmol/L (24.0-30.0); PCO2 Venous 27.8 mmHg (38-42)
[2022-06-09 15:31] LABS: pH Blood Venous 7.15 (7.34-7.37)
[2022-06-09 16:10] LABS: Source, Urine Clean Catch
[2022-06-09 16:42] LABS: Appearance, Urine Clear (Clear); Bilirubin, Urine Neg (Neg); Blood, Urine 3+ (Neg); Color, Urine Yellow (P-Yellow); Glucose Qualitative, Urine Neg (Neg); Ketones, Urine 4+ (Neg); Leukocyte Esterase, Urine Neg (Neg); Nitrite, Urine Neg (Neg); Protein, Urine 3+ (Neg); Urobilinogen, Urine NORM (Normal)
[2022-06-09 17:37] LABS: Bacteria Few /hpf; Hyaline Casts 0-2 /lpf (0-2); Red Blood Cells, Urine 0-2 /hpf (0-2); Squamous Epithelial Cells Few /hpf (Few); White Blood Cells, Urine 0-2 /hpf (0-5)
[2022-06-09 17:38] LABS: Amorphous Light (0-Heavy)
[2022-06-09 19:37] LABS: Hematocrit 28.8 % (33.0-51.0); Hemoglobin 9.4 g/dL (11.5-16.0)
[2022-06-09 19:56] LABS: Albumin, Blood 3.1 g/dL (3.4-5.0); Anion Gap 18 mmol/L (6-16); Blood Urea Nitrogen 3 mg/dL (8-24); Bun/Creatinine Ratio 3.9 (12.0-20.0); CO2, Blood 12 mmol/L (21-32); Chloride, Blood 106 mmol/L (98-108); Creatinine, Blood 0.76 mg/dL (0.40-1.00); Glomerular Filtration Rate 97 (60-); Glucose, Blood 87 mg/dL (70-99); Phosphorus, Blood 1.3 mg/dL (2.5-4.9); Sodium, Blood 136 mmol/L (136-145)
--- NOTE | 2022-06-10 05:19 | NUR ---
A/OX3-4; ALERT TO SELF/PLACE/ SITUATION. OCCASIONALLY DISORIENTED TO TIME. FORGETFUL. VISUAL HALLUCINATIONS INTERMITTENTLY. CIWA 9 -10 THIS SHIFT. PIV L AC; IVF PER ORDERS. 1X ASSIST TO BSC. BED ALARM SET. SLEEP PROMOTED. CALL LIGHT IN REACH; ENCOURAGED TO MAKE NEEDS KNOWN. LIKELY WILL DC THIS MORNING.
[2022-06-10 06:08] LABS: Hematocrit 29.7 % (33.0-51.0); Hemoglobin 9.3 g/dL (11.5-16.0); Mean Corpuscular HGB Conc 31.3 g/dL (31.5-36.5); Mean Platelet Volume 10.7 fL (9.1-12.4); NRBC ABSOLUTE 0.03 K/mm3 (0.00-0.02); NRBC Auto 0.7 /100 WBC (0.0-0.2); Platelet Count 91 K/mm3 (150-400); RDW Coefficient Variation 15.6 % (11.7-14.2); RDW Standard Deviation 63.1 fL (35.1-46.3); Red Blood Cell Count 2.66 M/mm3 (3.80-5.20); White Blood Cell Count 4.45 K/mm3 (4.00-11.30)
[2022-06-10 06:21] LABS: Albumin, Blood 3.1 g/dL (3.4-5.0); Albumin/Globulin Ratio 0.8 (0.8-1.8); Bilirubin, Total 1.2 mg/dL (0.1-1.0); Bun/Creatinine Ratio 3.6 (12.0-20.0); Calcium, Blood 8.3 mg/dL (8.5-10.1); Creatinine, Blood 0.82 mg/dL (0.40-1.00); Potassium, Blood 3.8 mmol/L (3.5-5.5); Total Protein, Blood 7.1 g/dL (6.4-8.2)
[2022-06-10 06:37] LABS: Mean Corpuscular Volume 112 fL (80-100)
[2022-06-10 17:20] LABS: Albumin, Blood 3.2 g/dL (3.4-5.0); Anion Gap 23 mmol/L (6-16); Blood Urea Nitrogen 1 mg/dL (8-24); Bun/Creatinine Ratio 0.7 (12.0-20.0); CO2, Blood 11 mmol/L (21-32); Calcium, Blood 8.8 mg/dL (8.5-10.1); Chloride, Blood 104 mmol/L (98-108); Creatinine, Blood 1.36 mg/dL (0.40-1.00); Glomerular Filtration Rate 48 (60-); Glucose, Blood 146 mg/dL (70-99); Potassium, Blood 3.8 mmol/L (3.5-5.5); Sodium, Blood 138 mmol/L (136-145)
--- NOTE | 2022-06-10 17:50 | NUR ---
RN CALLED MD MCGARRY AND INFORMED HER OF CRITICAL LOW PHOSPHATE 0.6. SAID TO PLACE ORDER FOR K PHOS IV 30MMOL NOW AND K PHOSE 500MG TABLET BID AND ONE TABLET NOW.
[2022-06-10 17:55] LABS: Phosphorus, Blood 0.6 mg/dL (2.5-4.9)
[2022-06-10 18:01] LABS: Magnesium, Blood 1.9 mg/dL (1.6-2.4)
--- NOTE | 2022-06-10 18:36 | NUR ---
SHIFT SUMMARY- PT AAOX4 THIS SHIFT. X3 CIWAS COMPLETED THIS SHIFT. SCORES OF 13, 13, AND 12. PT MEDICATED X3 WITH 2MG OF ATIVAN IV. PT TOLERATING CLEARS FOR LUNCH AND DINNER.
[2022-06-11 06:22] LABS: Hematocrit 24.9 % (33.0-51.0); Hemoglobin 8.2 g/dL (11.5-16.0); Mean Corpuscular HGB 34.9 pg (26.0-34.0); Mean Corpuscular HGB Conc 32.9 g/dL (31.5-36.5); Mean Corpuscular Volume 106 fL (80-100); Mean Platelet Volume 10.1 fL (9.1-12.4); NRBC ABSOLUTE 0.02 K/mm3 (0.00-0.02); NRBC Auto 0.7 /100 WBC (0.0-0.2); Platelet Count 91 K/mm3 (150-400); RDW Coefficient Variation 15.5 % (11.7-14.2); RDW Standard Deviation 59.4 fL (35.1-46.3); Red Blood Cell Count 2.35 M/mm3 (3.80-5.20); White Blood Cell Count 3.07 K/mm3 (4.00-11.30)
[2022-06-11 06:25] LABS: Albumin, Blood 2.8 g/dL (3.4-5.0); Albumin/Globulin Ratio 0.8 (0.8-1.8); Bilirubin, Total 0.9 mg/dL (0.1-1.0); Bun/Creatinine Ratio 2.9 (12.0-20.0); Calcium, Blood 8.2 mg/dL (8.5-10.1); Creatinine, Blood 0.69 mg/dL (0.40-1.00); Globulin, Blood 3.6 g/dL (2.2-4.0); Potassium, Blood 2.9 mmol/L (3.5-5.5); Total Protein, Blood 6.4 g/dL (6.4-8.2)
--- NOTE | 2022-06-11 18:47 | NUR ---
SHIFT SUMMARY: PT A/O X 3, STANDBY ASSIST DUE TO WEAKNESS, SHAKINESS ON FEET. CIWA'S HAVE BEEN BETWEEN 3-10 TODAY. ATIVAN AND LIBRIUM EFFECTIVE IN TREATING WITHDRAWAL SYMPTOMS. PT DOES REPORT AUDIBLE AND VISUAL HALLUCINATIONS AND REPORTS SHE IS AWARE THEY ARE HALLUCINATIONS. SHE DID ALSO REPORT SHE TRIED TO TAKE A BITE OF HER CALL LIGHT THINKING IT WAS FOOD. SHE ALSO REPORTS SHE THINKS HER SPOUSE IS TALKING TO HER AND SHE RESPONDS WHEN HE IS NOT IN THE ROOM. PT CONTINUES TO C/O ABD TENDERNESS WITH VERY GENTLE PALPATION. DILAUDID IS EFFECTIVE IN MANAGING PAIN. BS PRESENT, PT TOLERATING CLEAR LIQUIDS. PT DOES REPORT SHE IS STILL HAVING LOOSE STOOLS WHICH WERE OBSERVED TODAY AND BROWN COLORED AND NO SIGNS OF TARRY STOOL.
--- NOTE | 2022-06-12 04:18 | NUR ---
SHIFT MOSTLY UNREMARKABLE. WITHDRAWL SYMPTOMS WELL MANAGED ON CURRENT MEDICATION REGIMEN. PAIN WELL MANAGED ON CURRENT MEDICATION REGIMEN. PT HAS BEEN ABLE TO SLEEP PEACEFULLY THROUGH MOST OF SHIFT. CALL LIGHT LEFT WITHIN REACH.
[2022-06-12 06:25] LABS: Iron Serum 52 ug/dL (50-170); Percent Saturation 29.1 % (15.0-50.0); Total Iron Binding Capacity 179 ug/dL (250-450)
[2022-06-12 07:03] LABS: Ferritin, Serum 327 ng/mL (8-252)
[2022-06-12 07:07] LABS: Anion Gap 9 mmol/L (6-16); Blood Urea Nitrogen <1 mg/dL (8-24); Bun/Creatinine Ratio Unable to Calculate (12.0-20.0); CO2, Blood 20 mmol/L (21-32); Calcium, Blood 8.6 mg/dL (8.5-10.1); Chloride, Blood 113 mmol/L (98-108); Creatinine, Blood 0.75 mg/dL (0.40-1.00); Glomerular Filtration Rate 98 (60-); Glucose, Blood 134 mg/dL (70-99); Phosphorus, Blood 1.3 mg/dL (2.5-4.9); Potassium, Blood 2.6 mmol/L (3.5-5.5); Sodium, Blood 142 mmol/L (136-145)
--- NOTE | 2022-06-12 18:35 | NUR ---
SHIFT SUMMARY PT SLEEPING MOST OF THE DAY BUT THIS MORNING SHE WAS VERY GROGGY AND STATED SHE FELT VERY LETHARGIC-WORDS SLURRED AND AT TIMES HARD TO UNDERSTAND HER. AT BEDSIDE THIS MORNING AND EVENING. MORE AWAKE THIS EVENING AND NOT FALLING ASLEEP INTO HER SOUP. SPEECH MORE CLEAR WELL. REPORTED ONGOING PAIN TO UPPER ABDOMEND BUT STATED THE WHOLE ABDOMEN IS TENDER TO PALPATION. 1 PERSON ASSIST UP TO BEDSIDE COMMODE.
--- NOTE | 2022-06-13 05:15 | NUR ---
HAIR SPINNING MACHINE OPERATOR SUMMARY NO ACUTE EVENTS THROUGHOUT THE NIGHT. A&OX4. SLOW SPEECH. PATIENT EFFECTIVELY COMMUNICATES NEEDS. VSS. RR EVEN AND UNLABORED ON RA. PAIN ASSESSED AND MEDICATED PER EMAR. BED LOW AND LOCKED. CALL LIGHT WITHIN REACH. THIS RN WILL CONTINUE TO MONITOR
[2022-06-13 06:51] LABS: Albumin, Blood 2.7 g/dL (3.4-5.0); Anion Gap 7 mmol/L (6-16); Blood Urea Nitrogen 1 mg/dL (8-24); Bun/Creatinine Ratio 1.7 (12.0-20.0); CO2, Blood 23 mmol/L (21-32); Chloride, Blood 110 mmol/L (98-108); Creatinine, Blood 0.61 mg/dL (0.40-1.00); Glomerular Filtration Rate 110 (60-); Glucose, Blood 132 mg/dL (70-99); Phosphorus, Blood 1.9 mg/dL (2.5-4.9); Potassium, Blood 2.8 mmol/L (3.5-5.5); Sodium, Blood 140 mmol/L (136-145)
[2022-06-13 07:08] LABS: Hematocrit 28.7 % (33.0-51.0); Hemoglobin 9.5 g/dL (11.5-16.0); Mean Corpuscular HGB 34.7 pg (26.0-34.0); Mean Corpuscular HGB Conc 33.1 g/dL (31.5-36.5); Mean Corpuscular Volume 105 fL (80-100); Mean Platelet Volume 10.8 fL (9.1-12.4); NRBC ABSOLUTE 0.15 K/mm3 (0.00-0.02); NRBC Auto 4.8 /100 WBC (0.0-0.2); Platelet Count 126 K/mm3 (150-400); RDW Standard Deviation 61.6 fL (35.1-46.3); Red Blood Cell Count 2.74 M/mm3 (3.80-5.20); White Blood Cell Count 3.13 K/mm3 (4.00-11.30)
--- NOTE | 2022-06-13 18:18 | NUR ---
SHIFT SUMMARY PT SLEEPING ON AND OFF THROUGH THE DAY. AT BEDSIDE APPROX LUNCH AND DINNERTIME. WAS UP FOR MEALS IN CHAIR AND TOOK A SHOWER WITH DELIVERY TECH REPORTING PT AMBULATED BACK TO BED AFTER SHOWER WITH FWW AND TOLERATED WELL. LIBRIUM HELD THIS AFTERNOON DUE TO SLEEPING AND CIWAS LESS. CONTINUES TO STATE SHE FEELS VERY WEAK. ELLIE BACH IN TO VISIT WITH PT THIS MORNING. DISCUSSED HOME LIFE WITH PT AND HER . MANY REASONS GIVEN FOR PT CONTINUING TO DRINK AND PROVIDING ALCOHOL. NO REPORTS OF PAIN TODAY BUT ABDOMEN REMAINS DISTENDED.
--- NOTE | 2022-06-14 02:34 | NUR ---
0233 CALL FROM [employer] MONITOR= PT BACK IN AFLUTTER AVERAGE CURRENTLY 109
--- NOTE | 2022-06-14 05:01 | NUR ---
SHIFT SUMMARY PT LAYING IN BED DURING BEDSIDE ROUNDS- PT C/O PAIN IN RIGHT WRIST IV - IV INFUSING WITH SODIUM PHOS- INFUSION DECREASED AND RUNNING CONCURRENT WITH NS= PT UP TO BSC T/O NIGHT- REMOTE MONITORING CALLED MULTIPLE TIMES TO NOTIFY THAT THE PT WAS UP TO SIDE OF BED- ASSISTED PT TO BSC- PT TOLERATED WELL- BED LOW POSITION, CALL LIGHT WITHIN REACH, BED ALARM IN PLACE
[2022-06-14 08:31] LABS: Albumin, Blood 2.6 g/dL (3.4-5.0); Anion Gap 5 mmol/L (6-16); Blood Urea Nitrogen 3 mg/dL (8-24); Bun/Creatinine Ratio 4.6 (12.0-20.0); CO2, Blood 28 mmol/L (21-32); Calcium, Blood 8.5 mg/dL (8.5-10.1); Chloride, Blood 110 mmol/L (98-108); Creatinine, Blood 0.65 mg/dL (0.40-1.00); Glomerular Filtration Rate 109 (60-); Glucose, Blood 127 mg/dL (70-99); Phosphorus, Blood 3.5 mg/dL (2.5-4.9); Potassium, Blood 3.1 mmol/L (3.5-5.5); Sodium, Blood 143 mmol/L (136-145)
--- NOTE | 2022-06-14 16:26 | NUR ---
SHIFT SUMMARY: PATIENT A&OX4. CALM, PLEASANT AND COOPERATIVE CARE. USES CALL LIGHT APPROPRIATELY AND ABLE TO MAKE NEEDS KNOWN. PATIENT DENIES VISUAL/AUDITORY HALLUCINATION THIS SHIFT. CIWA ASSESSMENT X2, SCORE RANGES 3-5. PATIENT REPORTS HEADACHE 11/07. MEDICATED X1 c NORCO, REPORT c GOOD RELIEF. PATIENT WORK c PT/OT MOBILITY TODAY. PT RECOMMENDED HH AND SUPERVISION. PATIENT IS ABLE TO AMBULATES USING FWW AND GAITBELT, TO BSC AND BACK IN BED. K 3.1, RECEIVED OT DOSE PO K. RECEIVED SCHEDULED MEDS PER EMAR. VITAL SIGNS REVIEWED. BED ALARM ON FOR SAFETY. CALL LIGHT IN REACH.
[2022-06-15 05:30] LABS: Hematocrit 27.4 % (33.0-51.0); Mean Corpuscular HGB 34.9 pg (26.0-34.0); Mean Corpuscular HGB Conc 32.8 g/dL (31.5-36.5); Mean Corpuscular Volume 106 fL (80-100); Mean Platelet Volume 10.5 fL (9.1-12.4); NRBC ABSOLUTE 0.02 K/mm3 (0.00-0.02); NRBC Auto 0.7 /100 WBC (0.0-0.2); Platelet Count 151 K/mm3 (150-400); RDW Standard Deviation 68.6 fL (35.1-46.3); Red Blood Cell Count 2.58 M/mm3 (3.80-5.20); White Blood Cell Count 2.82 K/mm3 (4.00-11.30)
--- NOTE | 2022-06-15 05:41 | NUR ---
PT IS A&O4, SB WITH A WALKER TO THE BR, RA, CIWAS STABLE OVERNIGHT, PRN PAIN MEDICATION GIVEN PER EMAR, NO ACUTE OVERNIGHT EVENTS, CONTINUE POC
[2022-06-15 05:53] LABS: Albumin, Blood 2.4 g/dL (3.4-5.0); Anion Gap 5 mmol/L (6-16); Blood Urea Nitrogen 10 mg/dL (8-24); CO2, Blood 26 mmol/L (21-32); Chloride, Blood 110 mmol/L (98-108); Creatinine, Blood 0.72 mg/dL (0.40-1.00); Glomerular Filtration Rate 103 (60-); Glucose, Blood 116 mg/dL (70-99); Phosphorus, Blood 4.2 mg/dL (2.5-4.9); Potassium, Blood 3.1 mmol/L (3.5-5.5); Sodium, Blood 141 mmol/L (136-145)
--- NOTE | 2022-06-15 16:55 | NUR ---
SHIFT SUMMARY: PATIENT A&OX4. CALM, PLEASANT, AND COOPERATIVE c CARE. USES CALL LIGHT APPROPRIATELY AND ABLE TO MAKE NEEDS KNOWN. CIWA ASSESSMENT X2 SCORE RANGES 2-4. PATIENT AMBULATES TO BATHROOM AND BACK IN BED c SBA AND FWW T/O SHIFT. PATIENT TOOK A SHOWER THIS AM c MINIMAL ASSIST FROM STAFF AND TOLERATED WELL. DENIES CP/CHEST PRESSURE, SOB. REPORTS HEADACHE AND MILD NAUSEOUS BUT NO VOMITING. PATIENT REQUESTED ABY MIST FOR NAUSEOUS AND MEDICATED X1 c NORCO. PATIENT REPORTS NAUSEOUS RESSOLVED AND HAD ADEQUATE RELIEF FROM NORCO. PATIENT REPORTS SHE FEELS BETTER TODAY COMPARED YESTERDAY. PATIENT WORK c PT MOBILITY THIS PM AND TOLERATED WELL. SPOUSE VISITED PATIENT TODAY AND ASKING THIS RN FOR AN UPDATES REGARDING PATIENT CONDITION. UPDATES GIVEN TO SPOUSE. SPOUSE HAS CONCERN DISCHARGING PATIENT c HH SERVICES. PER SPOUSE HE WOULD NOT ALLOW HH SERVICES TO COME TO HIS HOUSE AND WOULD LIKE FOR PATIENT TO GO TO SNF. THIS RN ASSURED THE SPOUSE THAT HIS CONCERN WOULD PASS IT ON TO THE REST OF HEALTHCARE TEAM WORKING WITH THE PATIENT. PATIENT RECEIVED SCHEDULED MEDS PER EMAR. VITAL SIGNS REVIEWED. IV TO R FOREARM SALINE LOCKED. CALL LIGHT IN REACH.
--- NOTE | 2022-06-16 04:01 | NUR ---
SHIFT UNREMARKABLE. PT COMPLAINED OF PAIN EARLY IN SHIFT THAT IS WELL MANAGED VIA EMAR AND HOT/COOL APPLICATION. MUCH STEADIER ON FEET THAN LAST TIME THIS NURSE WAS PRESENT. CALLS APPROPRIATELY. CIWAS HAVE REMAINED BELOW 8. PT HAS BEEN ABLE TO REST AND RELAX THROUGH MOST OF SHIFT. CALL LIGHT LEFT WITHIN REACH.
[2022-06-16 06:10] LABS: BASOPHILS ABSOLUTE AUTO 0.03 K/mm3 (0.00-0.23); BASOPHILS PERCENT AUTO 1 % (0-2); EOSINOPHILS ABSOLUTE AUTO 0.07 K/mm3 (0.00-0.68); EOSINOPHILS PERCENT AUTO 2 % (0-6); Hematocrit 28.3 % (33.0-51.0); Hemoglobin 8.9 g/dL (11.5-16.0); IMMATURE GRAN ABSOLUTE AUTO 0.07 K/mm3 (0.00-0.10); IMMATURE GRAN PERCENT AUTO 2 % (0-1); LYMPHOCYTES ABSOLUTE AUTO 1.45 K/mm3 (0.84-5.20); LYMPHOCYTES PERCENT AUTO 47 % (21-46); MONOCYTES ABSOLUTE AUTO 0.61 K/mm3 (0.16-1.47); MONOCYTES PERCENT AUTO 20 % (4-13); Mean Corpuscular HGB 33.8 pg (26.0-34.0); Mean Corpuscular HGB Conc 31.4 g/dL (31.5-36.5); Mean Corpuscular Volume 108 fL (80-100); Mean Platelet Volume 10.6 fL (9.1-12.4); NEUTROPHILS ABSOLUTE AUTO 0.89 K/mm3 (1.96-9.15); NEUTROPHILS PERCENT AUTO 29 % (41-73); Platelet Count 174 K/mm3 (150-400); RDW Coefficient Variation 17.9 % (11.7-14.2); RDW Standard Deviation 70.4 fL (35.1-46.3); Red Blood Cell Count 2.63 M/mm3 (3.80-5.20); White Blood Cell Count 3.12 K/mm3 (4.00-11.30)
[2022-06-16 06:32] LABS: Albumin, Blood 2.4 g/dL (3.4-5.0); Albumin/Globulin Ratio 0.8 (0.8-1.8); Bilirubin, Total 0.4 mg/dL (0.1-1.0); Calcium, Blood 7.9 mg/dL (8.5-10.1); Creatinine, Blood 0.75 mg/dL (0.40-1.00); Magnesium, Blood 1.3 mg/dL (1.6-2.4); Potassium, Blood 3.5 mmol/L (3.5-5.5); Total Protein, Blood 5.4 g/dL (6.4-8.2)
[2022-06-16] MEDS ORDERED: PANT40 PO (14:14)
--- NOTE | 2022-06-16 17:21 | NUR ---
SHIFT SUMMARY: PATIENT MAGNESIUM IS 1.3 TODAY, RECEIVED IV OT DOSE OF MAG SULFATE. OVERALL, PATIENT CONTINUES TO BE IMPROVING PHYSICALLY. PATIENT AMBULATES TO BATHROOM AND BACK IN BED USING FWW c SBA FROM STAFF. SPOUSE REPORTS CONCERNS DISCHARGING PATIENT HOME. PER SPOUSE THEY HAVE 6 STEPS AND ABOUT 2 INCHES THICK EACH STEP AT HOME AND ACCORDING TO SPOUSE PATIENT IS NOT READY TO BE DISCHARGED. THIS RN REPORT TO CHARGED RN, JACKSON REGARDING SPOUSE CONCERN. JACKSON CALLED PT TO REEVALUATE PATIENT MOBILITY. PT AND DR. LEHMAN HAD DISCUSSION REGARDING PATIENT CONDITION AND SPOUSE CONCERN. PATIENT DISCHARGE HAS CANCELLED TODAY AND REEVALUATE THE PATIENT TOMORROW. PER SPOUSE "TO LET ANYONE KNOW THAT HE AND PATIENT WOULD NOT LET ANY HH SERVICES TO COME TO THEIR HOUSE AND WORK WITH THE PATIENT." PER SPOUSE "IT IS NOT GOING TO WORK AND WASTING THEIR TIME." THIS RN ASSURE SPOUSE THAT HIS CONCERN WOULD PASS IT ON TO THE REST OF HEALTHCARE TEAM WORKING c PATIENT. CIWA STABLE. VITAL SIGNS REVIEWED. RECEIVED SCHEDULED PER EMAR. IV TO R FOREARM SALINE LOCKED. CALL LIGHT IN REACH.
--- NOTE | 2022-06-17 03:53 | NUR ---
SHIFT UNREMARKABLE. PAIN WELL MANAGED ON CURRENT MEDICATION REGIMEN + HOT/COOL APPLICATION. PT STEADY ON FEET WITH SBA. IMPROVING QUICKLY OVER SUBSEQUENT SHIFTS WITH THIS NURSE. PLEASANT, AOX4, AND COOPERATIVE WITH CARE THROUGHOUT SHIFT. ALL CIWAS THIS SHIFT HAVE HAD SCORE OF 0. PT CALLS APPROPRIATELY FOR SBA DESPITE NOT BELIEVING THAT SHE NEEDS THE HELP. EXPLAINED THAT WE WOULD LIKE TO MONITOR AMBULATION DUE TO RISK OF FALLS, WHICH SHE UNDERSTANDS. CALL LIGHT LEFT WITHIN REACH.
[2022-06-17 05:52] LABS: BASOPHILS ABSOLUTE AUTO 0.03 K/mm3 (0.00-0.23); BASOPHILS PERCENT AUTO 1 % (0-2); EOSINOPHILS ABSOLUTE AUTO 0.06 K/mm3 (0.00-0.68); EOSINOPHILS PERCENT AUTO 2 % (0-6); Hematocrit 28.9 % (33.0-51.0); Hemoglobin 9.2 g/dL (11.5-16.0); IMMATURE GRAN ABSOLUTE AUTO 0.06 K/mm3 (0.00-0.10); IMMATURE GRAN PERCENT AUTO 2 % (0-1); LYMPHOCYTES ABSOLUTE AUTO 1.24 K/mm3 (0.84-5.20); LYMPHOCYTES PERCENT AUTO 40 % (21-46); MONOCYTES ABSOLUTE AUTO 0.72 K/mm3 (0.16-1.47); MONOCYTES PERCENT AUTO 23 % (4-13); Mean Corpuscular HGB 34.2 pg (26.0-34.0); Mean Corpuscular HGB Conc 31.8 g/dL (31.5-36.5); Mean Corpuscular Volume 107 fL (80-100); Mean Platelet Volume 10.5 fL (9.1-12.4); NEUTROPHILS ABSOLUTE AUTO 0.98 K/mm3 (1.96-9.15); NEUTROPHILS PERCENT AUTO 32 % (41-73); Platelet Count 199 K/mm3 (150-400); RDW Coefficient Variation 17.5 % (11.7-14.2); RDW Standard Deviation 68.7 fL (35.1-46.3); Red Blood Cell Count 2.69 M/mm3 (3.80-5.20); White Blood Cell Count 3.09 K/mm3 (4.00-11.30)
[2022-06-17 06:12] LABS: Bun/Creatinine Ratio 15.7 (12.0-20.0); Calcium, Blood 8.7 mg/dL (8.5-10.1); Creatinine, Blood 0.83 mg/dL (0.40-1.00); Magnesium, Blood 1.9 mg/dL (1.6-2.4); Potassium, Blood 3.9 mmol/L (3.5-5.5)
[2022-06-17] MEDS ORDERED: PANT20 PO (12:17)
--- NOTE | 2022-06-17 12:30 | NUR ---
DR. LEHMAN NOTIFIED OF BLEEDING HEMROID ASSESSED PT W/ THIS RN AT BEDSIDE.
--- NOTE | 2022-06-17 13:57 | NUR ---
PT C/O VOMITING, MEDICATED PER EMAR
--- NOTE | 2022-06-17 17:41 | NUR ---
SHIFT SUMMARY PT A&OX4, MOOD UP AND DOWN T/O SHIFT. SPOUSE AT BEDSIDE T/O SHIFT. PT VERBALIZES CONCERN ABOUT STAIRS LEADING INTO HOME. [facility], EXPECTED APPROX 1 HOUR AGO. CALL LIGHT W/IN REACH. VSS. PT C/O BLEEDING HEMROID ASSESSED. N/V MEDICATED PER EMAR.
--- NOTE | 2022-06-18 05:57 | NUR ---
PT WITH MINIMAL NEEDS, CALLS FOR BATHROOM, USES WALKER SOMETIMES, OTHER TIMES WALKS ALONE WITH NO ISSUES. CONTNIUES TO WORRY ABOUT STAIRS AT HOME AND GOING HOME, DID TALK WITH PT THAT TODAY SHE WILL BE GOING HOME AND SHE IS AWARE AND UNSERSTANDS. AFTER TALKING WITH HER AND NEXT TIME IN ROOM PT MENTIONED THAT SHE HAS FELT "SICK"EARLIER BUT DIDNT NEEDS ANY MEDICATION FOR IT.
--- NOTE | 2022-06-18 15:22 | NUR ---
PT DISCHARGED THE PT AND HER VERBALIZED UNDERSTANDING OF THE DC INSTRUCTIONS. THE PT WAS REMINDED TO CALL HER PCP FOR A FOLLOW UP APPOINTMENT. BELONGINGS RELEASED TO THE PTS . THE PT WAS TRANSFERED VIA WHEELCHAIR ACCOMPANIED BY AMARJIT.
== END 2022-06-18 14:46 | disposition home or self-care (01) | DRG 897 ==
LOC: ER 12:32 → MEDS 12:33
PROVIDERS: Physician Assistant; Student in an Organized Health Care Education/Training Program; ADMIT Internal Medicine
DX: F10.231 Alcohol dependence with withdrawal delirium (principal); E87.29 Other acidosis; D61.818 Other pancytopenia; G93.49 Other encephalopathy; E87.1 Hypo-osmolality and hyponatremia; K29.70 Gastritis, unspecified, without bleeding; E87.6 Hypokalemia; E83.42 Hypomagnesemia; K70.9 Alcoholic liver disease, unspecified; R16.0 Hepatomegaly, not elsewhere classified; K76.0 Fatty (change of) liver, not elsewhere classified; E83.39 Other disorders of phosphorus metabolism; E66.9 Obesity, unspecified; R74.01 Elevation of levels of liver transaminase levels; F31.9 Bipolar disorder, unspecified; M32.9 Systemic lupus erythematosus, unspecified; I10 Essential (primary) hypertension; F43.10 Post-traumatic stress disorder, unspecified; M06.9 Rheumatoid arthritis, unspecified; G89.29 Other chronic pain; Z98.890 Other specified postprocedural states; Z98.51 Tubal ligation status; Z90.710 Acquired absence of both cervix and uterus; Z90.721 Acquired absence of ovaries, unilateral; Z90.49 Acquired absence of other specified parts of digestive tract; Z87.19 Personal history of other diseases of the digestive system; Z79.899 Other long term (current) drug therapy; Z79.52 Long term (current) use of systemic steroids; Z79.891 Long term (current) use of opiate analgesic; Z79.51 Long term (current) use of inhaled steroids; Z98.84 Bariatric surgery status; Z79.01 Long term (current) use of anticoagulants; Z87.891 Personal history of nicotine dependence; Z68.32 Body mass index [BMI] 32.0-32.9, adult; K64.4 Residual hemorrhoidal skin tags
CPT/HCPCS: 36415; 71046; 74177; 76705; 80048; 80053; 80069; 81001; 82010; 82607; 82728; 82746; 82803; 82947; 83540; 83550; 83605; 83690; 83735; 84100; 84703; 85014; 85018; 85025; 85027; 93005; 93010; 96361; 96365; 96366; 96367; 96368; 96375; 96376; 97110; 97110-CQ; 97116; 97116-CQ; 97162; 97166; 97530; 97535; 99285-25; A9270; C9113; G0378; G0480; J1170; J2060; J2405; J3010; J3411; J3475; J3480; J7030; J7050; J7060; Q9967

== ENCOUNTER 2022-07-20 18:12 | Emergency (ER) | payer OTHER ==
[~2022-07-20] VITALS: Ht 180.3 cm; Wt 104.3 kg
[~2022-07-20 18:12] MED LIST changes: +ACAMPROSATE CA333 MG PO; +Ativan1 MG PO; +FURO20; +GABA400 PO; +MAGNESIUM OXID500 MG PO; +PALI3TAB; +PANT20 PO; +SPIR25 PO
[2022-07-20 19:00] LABS: BASOPHILS ABSOLUTE AUTO 0.02 K/mm3 (0.00-0.23); BASOPHILS PERCENT AUTO 0 % (0-2); EOSINOPHILS ABSOLUTE AUTO 0.03 K/mm3 (0.00-0.68); EOSINOPHILS PERCENT AUTO 0 % (0-6); Hematocrit 37.7 % (33.0-51.0); IMMATURE GRAN ABSOLUTE AUTO 0.02 K/mm3 (0.00-0.10); IMMATURE GRAN PERCENT AUTO 0 % (0-1); LYMPHOCYTES ABSOLUTE AUTO 1.87 K/mm3 (0.84-5.20); LYMPHOCYTES PERCENT AUTO 24 % (21-46); MONOCYTES ABSOLUTE AUTO 0.19 K/mm3 (0.16-1.47); MONOCYTES PERCENT AUTO 2 % (4-13); Mean Corpuscular HGB 33.5 pg (26.0-34.0); Mean Corpuscular HGB Conc 34.5 g/dL (31.5-36.5); Mean Corpuscular Volume 97 fL (80-100); Mean Platelet Volume 10.9 fL (9.1-12.4); NEUTROPHILS ABSOLUTE AUTO 5.76 K/mm3 (1.96-9.15); NEUTROPHILS PERCENT AUTO 73 % (41-73); Platelet Count 161 K/mm3 (150-400); RDW Coefficient Variation 13.2 % (11.7-14.2); RDW Standard Deviation 47.2 fL (35.1-46.3); Red Blood Cell Count 3.88 M/mm3 (3.80-5.20); White Blood Cell Count 7.89 K/mm3 (4.00-11.30)
[2022-07-20 19:18] LABS: Bilirubin, Direct 0.1 mg/dL (0.0-0.3); Bilirubin, Indirect 0.6 mg/dL (0.1-0.7); Bilirubin, Total 0.7 mg/dL (0.1-1.0); Bun/Creatinine Ratio 14.9 (12.0-20.0); Calcium, Blood 9.2 mg/dL (8.5-10.1); Creatinine, Blood 0.8 mg/dL (0.40-1.00); Globulin, Blood 4.2 g/dL (2.2-4.0); Potassium, Blood 4.6 mmol/L (3.5-5.5); Total Protein, Blood 8.2 g/dL (6.4-8.2)
[2022-07-20] MEDS ORDERED: CHLO25 PO (19:53)
[2022-07-20] MEDS ORDERED: PROM25 PO (19:53)
[2022-07-20 20:09] VITALS: BP 134/83
== END 2022-07-20 20:05 | disposition home or self-care (01) ==
LOC: ER 18:12
PROVIDERS: Emergency Medicine
DX: F10.10 Alcohol abuse, uncomplicated (principal); M06.9 Rheumatoid arthritis, unspecified; G89.29 Other chronic pain; Z88.8 Allergy status to other drugs, medicaments and biological substances; Z79.899 Other long term (current) drug therapy
CPT/HCPCS: 36415; 80053; 82248; 83690; 85025; 99282; A9270; G0480

== ENCOUNTER 2022-10-29 21:04 | Inpatient (IN) | payer OTHER ==
[~2022-10-29] VITALS: Ht 172.7 cm; Wt 99.7 kg
[2022-10-29 22:22] LABS: BASOPHILS ABSOLUTE AUTO 0.08 K/mm3 (0.00-0.23); BASOPHILS PERCENT AUTO 1 % (0-2); EOSINOPHILS ABSOLUTE AUTO 0.03 K/mm3 (0.00-0.68); EOSINOPHILS PERCENT AUTO 0 % (0-6); Hematocrit 37.5 % (33.0-51.0); Hemoglobin 12.7 g/dL (11.5-16.0); IMMATURE GRAN ABSOLUTE AUTO 0.05 K/mm3 (0.00-0.10); IMMATURE GRAN PERCENT AUTO 0 % (0-1); LYMPHOCYTES ABSOLUTE AUTO 2.75 K/mm3 (0.84-5.20); LYMPHOCYTES PERCENT AUTO 17 % (21-46); MONOCYTES ABSOLUTE AUTO 0.86 K/mm3 (0.16-1.47); MONOCYTES PERCENT AUTO 5 % (4-13); Mean Corpuscular HGB 33.8 pg (26.0-34.0); Mean Corpuscular HGB Conc 33.9 g/dL (31.5-36.5); Mean Corpuscular Volume 100 fL (80-100); Mean Platelet Volume 10.2 fL (9.1-12.4); NEUTROPHILS ABSOLUTE AUTO 12.56 K/mm3 (1.96-9.15); NEUTROPHILS PERCENT AUTO 77 % (41-73); Platelet Count 187 K/mm3 (150-400); RDW Coefficient Variation 13.5 % (11.7-14.2); RDW Standard Deviation 49.4 fL (35.1-46.3); Red Blood Cell Count 3.76 M/mm3 (3.80-5.20); White Blood Cell Count 16.33 K/mm3 (4.00-11.30)
[2022-10-29 22:45] LABS: Albumin, Blood 3.5 g/dL (3.4-5.0); Albumin/Globulin Ratio 0.9 (0.8-1.8); Bilirubin, Total 0.9 mg/dL (0.1-1.0); Calcium, Blood 8.7 mg/dL (8.5-10.1); Creatinine, Blood 0.73 mg/dL (0.40-1.00); Globulin, Blood 3.8 g/dL (2.2-4.0); Total Protein, Blood 7.3 g/dL (6.4-8.2)
[2022-10-30 01:54] LABS: Influenza A, PCR NEGATIVE (NEGATIVE); Influenza B, PCR NEGATIVE (NEGATIVE); Resp Syncytial Virus, PCR NEGATIVE (NEGATIVE); SARS-Cov-2 (COVID-19) PCR, MMC NEGATIVE (NEGATIVE)
[2022-10-30 05:19] VITALS: BP 127/60
[2022-10-30 06:12] LABS: BASOPHILS ABSOLUTE AUTO 0.05 K/mm3 (0.00-0.23); BASOPHILS PERCENT AUTO 1 % (0-2); EOSINOPHILS ABSOLUTE AUTO 0.02 K/mm3 (0.00-0.68); EOSINOPHILS PERCENT AUTO 0 % (0-6); Hematocrit 33.4 % (33.0-51.0); Hemoglobin 11.3 g/dL (11.5-16.0); IMMATURE GRAN ABSOLUTE AUTO 0.05 K/mm3 (0.00-0.10); IMMATURE GRAN PERCENT AUTO 1 % (0-1); LYMPHOCYTES PERCENT AUTO 13 % (21-46); MONOCYTES ABSOLUTE AUTO 0.45 K/mm3 (0.16-1.47); MONOCYTES PERCENT AUTO 4 % (4-13); Mean Corpuscular HGB 33.9 pg (26.0-34.0); Mean Corpuscular HGB Conc 33.8 g/dL (31.5-36.5); Mean Corpuscular Volume 100 fL (80-100); Mean Platelet Volume 10.6 fL (9.1-12.4); NEUTROPHILS ABSOLUTE AUTO 8.57 K/mm3 (1.96-9.15); NEUTROPHILS PERCENT AUTO 81 % (41-73); Platelet Count 144 K/mm3 (150-400); RDW Coefficient Variation 13.3 % (11.7-14.2); RDW Standard Deviation 49.1 fL (35.1-46.3); Red Blood Cell Count 3.33 M/mm3 (3.80-5.20); White Blood Cell Count 10.54 K/mm3 (4.00-11.30)
--- NOTE | 2022-10-30 06:12 | NUR ---
TRANSFER NOTE/ASSUMPTION OF CARE THIS RN RECEIVED REPORT FROM MICHELE PORTILLO IN THE ED. PT TO PCU AT 0530. PT AMBULATED TO BED FROM [facility]; STEADY GAIT NOTED. VITALS STABLE. DENIES CHEST PAIN/PRESSURE. REPORTS MILD HEADACHE. NO OTHER WITHDRAWAL SYMPTOMS NOTED. CIWA 1 AT THIS TIME. PT A&O X4. ABLE TO MAKE NEEDS KNOWN. PT REPORTS HAVING CONFUSION WITH PAST WITHDRAWALS; BED ALARM ON FOR SAFETY. PT DENIED IGNITION SOURCE. EDUCATED ON FIRE/IGNITION SAFETY. PT VERBALIZED UNDERSTANDING. BED IN LOWEST POSITION AND CALL LIGHT WITHIN REACH. THIS RN WILL CONTINUE TO MONITOR UNTIL SHIFT CHANGE AT 0700.
[2022-10-30 06:41] LABS: Albumin, Blood 3.3 g/dL (3.4-5.0); Bun/Creatinine Ratio 17.3 (12.0-20.0); Calcium, Blood 8.3 mg/dL (8.5-10.1); Creatinine, Blood 0.64 mg/dL (0.40-1.00); Globulin, Blood 3.4 g/dL (2.2-4.0); Potassium, Blood 4.5 mmol/L (3.5-5.5); Total Protein, Blood 6.7 g/dL (6.4-8.2)
[2022-10-30 08:56] VITALS: BP 122/73
[2022-10-30] MEDS ORDERED: HUMIRA40 MG/0.2 INJ (09:47)
--- NOTE | 2022-10-30 13:27 | NUR ---
ASSUMED CARE OF PT AT 0700 THIS AM. NO COMPLAINTS AT THAT TIME, AT BEDSIDE. FIRE SAFETY EDUCATION REVIEWED WITH PT/SPOUSE, THEY BOTH VERBALIZE UNDERSTANDING AND DENY ANY SOURCES OF IGNITION. 1321 REPORT CALLED TO YULY PORTILLO, PT MOVED TO ROOM 340 WITH ALL BELONGINGS. UPDATED.
--- NOTE | 2022-10-30 14:29 | NUR ---
pt arrived to room 340 via w/c. able to transfer self to bed. evaluated with ciwa and 6 result. did give librium 25mg. settled in to room and oriented to space.
[2022-10-30 15:12] VITALS: BP 139/79
--- NOTE | 2022-10-30 16:53 | NUR ---
SHIFT SUMMARY PT INDEPENDENT IN [facility] SINCE ARRIVAL. REPORTED LIBRIUM 25MG EFFECTIVE FOR MOST OF HER WITHDRAWAL SYMPTOMS EXCEPT HEADACHE. DIET PEPSI GIVEN DUE TO PT DRINKING CAFFEINE DAILY. STATES HEADACHE DID IMPROVE. WILL MONITER FOR FURTHER PAIN AND MEDICATE ACCORDINGLY-DOES REPORT ITS PRIMARILY ON R SIDE OF HEAD. NO FEVER. NO RESP DISTRESS NOTED.
[2022-10-30 19:22] VITALS: BP 143/77
--- NOTE | 2022-10-31 04:08 | NUR ---
TIE PULLER SUMMARY NO ACUTE EVENTS OVERNIGHT. A&OX4. PATIENT EFFECTIVELY COMMUNICATES NEEDS. VSS. RR EVEN AND UNLABORED ON RA. MOST RECENT CIWA WAS A 17. PATIENT APPEARED TO RESPOND WELL TO LIBRIUM PER EMAR. LR INFUSING @ 125ML/HR. BED LOW AND LOCKED. CALL LIGHT WITHIN REACH. THIS RN WILL CONTINUE TO MONIOR.
[2022-10-31 04:21] VITALS: BP 126/80
[2022-10-31 04:34] LABS: BASOPHILS ABSOLUTE AUTO 0.03 K/mm3 (0.00-0.23); BASOPHILS PERCENT AUTO 1 % (0-2); EOSINOPHILS ABSOLUTE AUTO 0.15 K/mm3 (0.00-0.68); EOSINOPHILS PERCENT AUTO 2 % (0-6); Hematocrit 30.6 % (33.0-51.0); Hemoglobin 10.4 g/dL (11.5-16.0); IMMATURE GRAN ABSOLUTE AUTO 0.01 K/mm3 (0.00-0.10); IMMATURE GRAN PERCENT AUTO 0 % (0-1); LYMPHOCYTES ABSOLUTE AUTO 1.88 K/mm3 (0.84-5.20); LYMPHOCYTES PERCENT AUTO 29 % (21-46); MONOCYTES ABSOLUTE AUTO 0.34 K/mm3 (0.16-1.47); MONOCYTES PERCENT AUTO 5 % (4-13); Mean Corpuscular HGB 34.1 pg (26.0-34.0); Mean Corpuscular Volume 100 fL (80-100); Mean Platelet Volume 9.8 fL (9.1-12.4); NEUTROPHILS ABSOLUTE AUTO 4.06 K/mm3 (1.96-9.15); NEUTROPHILS PERCENT AUTO 63 % (41-73); Platelet Count 111 K/mm3 (150-400); RDW Coefficient Variation 13.2 % (11.7-14.2); RDW Standard Deviation 48.9 fL (35.1-46.3); Red Blood Cell Count 3.05 M/mm3 (3.80-5.20); White Blood Cell Count 6.47 K/mm3 (4.00-11.30)
[2022-10-31 04:50] LABS: Albumin, Blood 2.7 g/dL (3.4-5.0); Anion Gap 4 mmol/L (6-16); Blood Urea Nitrogen 11 mg/dL (8-24); Bun/Creatinine Ratio 15.3 (12.0-20.0); CO2, Blood 25 mmol/L (21-32); Calcium, Blood 8.4 mg/dL (8.5-10.1); Chloride, Blood 113 mmol/L (98-108); Creatinine, Blood 0.72 mg/dL (0.40-1.00); Glomerular Filtration Rate 103 (60-); Glucose, Blood 105 mg/dL (70-99); Magnesium, Blood 1.7 mg/dL (1.6-2.4); Phosphorus, Blood 4.1 mg/dL (2.5-4.9); Potassium, Blood 4.2 mmol/L (3.5-5.5); Sodium, Blood 142 mmol/L (136-145)
[2022-10-31 07:22] VITALS: BP 132/69
[2022-10-31] MEDS ORDERED: VENLAFAXINE HCL50 MG PO (13:20)
[2022-10-31] MEDS ORDERED: FURO20 PO (13:21)
[2022-10-31 15:20] VITALS: BP 142/102
[2022-10-31] MEDS ORDERED: PANT40 PO (15:34)
[2022-10-31] MEDS ORDERED: VENLAFAXINE HC225 MG PO (15:35)
[2022-10-31] MEDS ORDERED: PRENATAL TABLE1 EAC9 PO (15:37)
[2022-10-31] MEDS ORDERED: HYDSUL200 PO (15:37)
[2022-10-31] MEDS ORDERED: FERROUS SULFAT325 M3 PO (15:40)
[2022-10-31] MEDS ORDERED: METO100ER PO (16:16)
[2022-10-31] MEDS ORDERED: MELO7.5 PO (16:16)
[2022-10-31] MEDS ORDERED: POTCHL20ER PO (16:17)
[2022-10-31 16:45] VITALS: BP 144/81
--- NOTE | 2022-10-31 18:28 | NUR ---
SHIFT SUMMARY' PT INDEPENDENT IN ROOM. SHOWER TAKEN THIS AFTERNOON. REPORTS HEADACHE ON AND OFF. MEDICATED FOR WITHDRAWALS NEEDED. AT BEDSIDE MOST OF DAY. PT REPORTS WAKING UP CONFUSED DUE TO WITHDRAWALS. ENCOURAGED HER TO CALL WHEN SHE STARTS TO FEEL MORE ANXIOUS, SHAKY, SWEATY, TACTILE, VISUAL, AUDITORY DISTURBANCES OR NAUSEA. NO FEVER. OCC COUGH WITH TESSALON HELPING. REPORT PAIN TO POSTERIOR AND SIDE OF R CHEST AT PNEUMONIA SITE. REPORTS DIARRHEA.
[2022-10-31 19:49] VITALS: BP 132/66
[2022-11-01 01:23] VITALS: BP 138/91
--- NOTE | 2022-11-01 04:38 | NUR ---
SHIFT SUMMARY PATIENT ALERT, PLEASANT AFFECT. SLEEPING OFF AND ON THROUGHOUT SHIFT. C/O LINDSEY UNRELIEVED BY PRIOR MEDICATION, ONCALL PROVIDER NOTIFIED, RECEIVED NEW ORDER FOR ONE TIME DOSE OF IMITREX 25MG, TOLERATED WELL. ONGOING MONITORING PER CIWA SCALE, CONTINUES TO BE SYMPTOMATIC THOUGH SCORE COMING DOWN TO A 7 THIS AM. PATIENT APPEARES TO BE ASLEEP IN BED, SLEEPING SOUNDLY IN NO ACUTE DISTRESS AT THIS TIME. BED IN LOW POSITION, CALL LIGHT WITHIN REACH.
[2022-11-01 05:35] VITALS: BP 137/75
[2022-11-01 05:47] LABS: BASOPHILS ABSOLUTE AUTO 0.02 K/mm3 (0.00-0.23); BASOPHILS PERCENT AUTO 1 % (0-2); EOSINOPHILS ABSOLUTE AUTO 0.14 K/mm3 (0.00-0.68); EOSINOPHILS PERCENT AUTO 3 % (0-6); Hematocrit 31.7 % (33.0-51.0); Hemoglobin 10.7 g/dL (11.5-16.0); IMMATURE GRAN ABSOLUTE AUTO 0.01 K/mm3 (0.00-0.10); IMMATURE GRAN PERCENT AUTO 0 % (0-1); LYMPHOCYTES ABSOLUTE AUTO 1.81 K/mm3 (0.84-5.20); LYMPHOCYTES PERCENT AUTO 42 % (21-46); MONOCYTES ABSOLUTE AUTO 0.29 K/mm3 (0.16-1.47); MONOCYTES PERCENT AUTO 7 % (4-13); Mean Corpuscular HGB 33.9 pg (26.0-34.0); Mean Corpuscular HGB Conc 33.8 g/dL (31.5-36.5); Mean Corpuscular Volume 100 fL (80-100); Mean Platelet Volume 11.3 fL (9.1-12.4); NEUTROPHILS ABSOLUTE AUTO 2.02 K/mm3 (1.96-9.15); NEUTROPHILS PERCENT AUTO 47 % (41-73); Platelet Count 109 K/mm3 (150-400); RDW Coefficient Variation 13.2 % (11.7-14.2); RDW Standard Deviation 48.7 fL (35.1-46.3); Red Blood Cell Count 3.16 M/mm3 (3.80-5.20); White Blood Cell Count 4.29 K/mm3 (4.00-11.30)
[2022-11-01 06:10] LABS: Albumin, Blood 2.7 g/dL (3.4-5.0); Albumin/Globulin Ratio 0.8 (0.8-1.8); Bilirubin, Total 0.3 mg/dL (0.1-1.0); Bun/Creatinine Ratio 21.2 (12.0-20.0); Calcium, Blood 8.8 mg/dL (8.5-10.1); Creatinine, Blood 0.85 mg/dL (0.40-1.00); Globulin, Blood 3.4 g/dL (2.2-4.0); Potassium, Blood 4.4 mmol/L (3.5-5.5); Total Protein, Blood 6.1 g/dL (6.4-8.2)
[2022-11-01 07:45] VITALS: BP 131/93
[2022-11-01 16:00] VITALS: BP 139/84
--- NOTE | 2022-11-01 16:38 | NUR ---
CALLED DR ACOSTA- PT EXPRESSED CONCERN ABOUT MISSING HOME MEDS, SPECIFFICALLY EFFEXOR AND METOPROLOL. MEDS WERE RECONCILED LATE IN THE DAY LAST NIGHT. CALLED TO UPDATE THAT THE PT HOME MED REC WAS UPDATED. AWARE AND WILL REVIEW WHEN TIME ALLOWS. NO NEW ORDERS AT THIS TIME.
--- NOTE | 2022-11-01 17:56 | NUR ---
SHIFT SUMMARY- PT ALERT AND ORIENTED, INDEPENDENT IN THE ROOM. PT HAD A CIIWA SCORE OF 9 EARLIER TODAY, MEDICATED WITH 1MG OF ATIVAN PO AND THE NEXT CIWA WAS 5. PT HAS HAD NO FURTHER S&S OF WITHDRAWL SO FAR. SPOUSE HAS BEEN AT THE BEDSIDE OFF AND ON THROUGHOUT THE DAY. PT IV ACCESS WAS LOST, SOME EDEMA NOTED IN THE LEFT HAND AND SHE HAD TO REMOVE HER RINGS. NEW IV ACCESS IN THE RIGHT ARM. RUNNING LR AT 75ML/HR. PT IN BED, CALL LIGHT IN REACH NO S&S OF DISTRESS.
[2022-11-01 19:25] VITALS: BP 149/90
[2022-11-02 04:22] VITALS: BP 110/64
--- NOTE | 2022-11-02 06:19 | NUR ---
SHIFT SUMMARY PATIENNT A/Ox4, BRIGHT AFFECT, SPOUSE AT BEDSIDE, SUPPORTIVE. NO C/O SEVER LINDSEY, NOR NAUSEA. CIWA AT BEGINING OF SHIFT WAS 10, NEAR END OF SHIFT AT ABOUT 04:30 WAS DOWN TO A 4. PATIENT ENDORSES FEELING BETTER, STATES MILDER S/Sx OF WITHDRAWAL. IMPROVED SLEEP OVERNIGHT, LESS PERIODS OF WAKEFULNESS. VSS, SPO2 94% ON RA. INDEPENDENT IN ROOM. NO ACUTE CHANGES NOTED OVERNIGHT. PATIENT EDUCATED ON FIRE SAFETY AND RISK OF INJURY R/T OXYGEN USE, VERBALIZED UNDERSTANDING, DENIES HAVING ACCESS TO ANY SOURCES OF IGNITION. BED LOCKED AND IN LOW POSITION, CALL LIGHT WITHIN REACH.
[2022-11-02 07:23] VITALS: BP 124/78
--- NOTE | 2022-11-02 17:06 | NUR ---
SHIFT SUMMARY PATIENT IS ALERT AND ORIENTED. PATIENT HAS HAD NO ACUTE EVENTS THIS SHIFT. VITAL SIGNS REVIEWED. PATIENT HAS BEEN MEDICATED TWICE FOR ANXIETY. MEDICATED PER EMAR. PATIENT HAS NOT HAD ANY COMPLAINTS OF PAIN, NAUSEA, SOB OR VOMITTING THIS SHIFT. ABX INFUSED ORDERED. BED IN LOCKED AND LOWEST POSITION. CALL LIGHT IN PLACE. WILL MONITOR UNTIL SHIFT CHANGE.
[2022-11-02 19:08] VITALS: BP 140/86
[2022-11-03 04:42] VITALS: BP 130/78
--- NOTE | 2022-11-03 06:45 | NUR ---
SHIFT SUMMARY PATIENT A/Ox4, DENIES PAIN, C/O MODERATE ANXIETY 08/07. RECEIVED PRN ATIVAN AND TOLERATED WELL WITHOUT FURTHER COMPLAINT. WITHOUT ANY OTHER S/Sx OF WITHDRAWAL THROUGHOUT SHIFT. PATIENT ASLEEP FOR MOST OF SHIFT. INDEPENDANT IN ROOM. SPOUSE AT BEDSIDE TILL JUST AFTER SHIFT CHANGE. PATIENT EDUCATED ON FIRE SAFETY AND NON-SMOKING POLICY, VERBALIZED UNDERSTANDING, DENIES ACCESS TO ANY SOURCE OF IGNITION. NO ACUTE CHANGES NOTED OVERNIGHT. BED LOW, CALL LIGHT IN REACH.
[2022-11-03 07:38] VITALS: BP 132/65
[2022-11-03] MEDS ORDERED: CEFP200 PO (10:05)
[2022-11-03] MEDS ORDERED: SUMA25 PO (10:05)
--- NOTE | 2022-11-03 11:04 | NUR ---
DISCHARGE SUMMARY PATIENT IS ALERT AND ORIENTED. PATIENT HAS HAD NO ACUTE EVENTS THIS SHIFT. PATIENT IS BEING DISCHARGED HOME. PATIENT HAS HAD NO COMPLAINTS OF PAIN, NAUSEA, SOB OR VOMITTING. PATIENT WAS READ DISCHARGE INSTRUCTIONS AND UNDERSTOOD. LAND EXAMINER IS WHEELING PATIENT OUT TO PATIENTS AWAITING.
== END 2022-11-03 11:05 | disposition home or self-care (01) | DRG 871 ==
LOC: ER 21:04 → PCU 10-30 04:50 → MEDS 10-30 04:50 → PCU 10-30 05:26 → MEDS 10-30 13:36
PROVIDERS: Family Medicine; Internal Medicine; Student in an Organized Health Care Education/Training Program; ADMIT Internal Medicine
PROC: 3E03329 Introduction of Other Anti-infective into Peripheral Vein, Percutaneous Approach (ICD-10-PCS; principal; 2022-10-31)
PROC: HZ2ZZZZ Detoxification Services for Substance Abuse Treatment (ICD-10-PCS; 2022-10-31)
DX: A41.9 Sepsis, unspecified organism (principal); J18.9 Pneumonia, unspecified organism; F10.239 Alcohol dependence with withdrawal, unspecified; E87.20 Acidosis, unspecified; M32.9 Systemic lupus erythematosus, unspecified; I10 Essential (primary) hypertension; M06.9 Rheumatoid arthritis, unspecified; G89.4 Chronic pain syndrome; F31.9 Bipolar disorder, unspecified; F43.10 Post-traumatic stress disorder, unspecified; R65.20 Severe sepsis without septic shock; K76.0 Fatty (change of) liver, not elsewhere classified; E66.9 Obesity, unspecified; Z20.822 Contact with and (suspected) exposure to COVID-19; E83.42 Hypomagnesemia; D69.6 Thrombocytopenia, unspecified; D63.8 Anemia in other chronic diseases classified elsewhere; F41.9 Anxiety disorder, unspecified; K21.9 Gastro-esophageal reflux disease without esophagitis; G43.909 Migraine, unspecified, not intractable, without status migrainosus; Z90.49 Acquired absence of other specified parts of digestive tract; Z98.84 Bariatric surgery status; Z87.19 Personal history of other diseases of the digestive system; Z98.51 Tubal ligation status; Z90.710 Acquired absence of both cervix and uterus; Z90.79 Acquired absence of other genital organ(s); Z90.722 Acquired absence of ovaries, bilateral; Z90.89 Acquired absence of other organs; Z88.8 Allergy status to other drugs, medicaments and biological substances; Z79.899 Other long term (current) drug therapy; Z71.41 Alcohol abuse counseling and surveillance of alcoholic; Z68.30 Body mass index [BMI] 30.0-30.9, adult
CPT/HCPCS: 0241U; 36415; 71045; 71046; 80053; 80069; 83605; 83735; 84484; 85025; 92610; 93005; 93010; 94760; 94762; 96361; 96365; 96375; 99284-25; A9270; J0696; J1650; J1885; J2405; J2765; J3411; J3475; J7030; J7050; J7120

== ENCOUNTER 2023-04-20 19:36 | Emergency (ER) | payer OTHER ==
[~2023-04-20] VITALS: Ht 180.3 cm; Wt 97.1 kg
[~2023-04-20 19:36] MED LIST changes: +CEFP200 PO; +FERROUS SULFAT325 M3 PO; +FURO20 PO; +HUMIRA40 MG/0.2 INJ; +HYDSUL200 PO; +MELO7.5 PO; +METO100ER PO; +POTCHL20ER PO; +PRENATAL TABLE1 EAC9 PO; +SUMA25 PO; +VENLAFAXINE HC225 MG PO; +VENLAFAXINE HCL50 MG PO
[2023-04-20 20:08] LABS: BASOPHILS ABSOLUTE AUTO 0.05 K/mm3 (0.00-0.23); BASOPHILS PERCENT AUTO 1 % (0-2); EOSINOPHILS ABSOLUTE AUTO 0.14 K/mm3 (0.00-0.68); EOSINOPHILS PERCENT AUTO 2 % (0-6); Hematocrit 38.2 % (33.0-51.0); Hemoglobin 13.1 g/dL (11.5-16.0); IMMATURE GRAN ABSOLUTE AUTO 0.01 K/mm3 (0.00-0.10); IMMATURE GRAN PERCENT AUTO 0 % (0-1); LYMPHOCYTES ABSOLUTE AUTO 2.82 K/mm3 (0.84-5.20); LYMPHOCYTES PERCENT AUTO 43 % (21-46); MONOCYTES ABSOLUTE AUTO 0.48 K/mm3 (0.16-1.47); MONOCYTES PERCENT AUTO 7 % (4-13); Mean Corpuscular HGB 34.6 pg (26.0-34.0); Mean Corpuscular HGB Conc 34.3 g/dL (31.5-36.5); Mean Corpuscular Volume 101 fL (80-100); Mean Platelet Volume 10.5 fL (9.1-12.4); NEUTROPHILS ABSOLUTE AUTO 3.08 K/mm3 (1.96-9.15); NEUTROPHILS PERCENT AUTO 47 % (41-73); Platelet Count 110 K/mm3 (150-400); RDW Coefficient Variation 14.1 % (11.7-14.2); RDW Standard Deviation 51.4 fL (35.1-46.3); Red Blood Cell Count 3.79 M/mm3 (3.80-5.20); White Blood Cell Count 6.58 K/mm3 (4.00-11.30)
[2023-04-20 20:21] LABS: Alanine Aminotransfer (ALT/SGP 55 U/L (12-78); Albumin, Blood 3.6 g/dL (3.4-5.0); Albumin/Globulin Ratio 0.8 (0.8-1.8); Alk Phos 103 U/L (50-136); Anion Gap 13 mmol/L (6-16); Aspartate Aminotrans (AST/SGOT 98 U/L (12-37); Bilirubin, Total 0.4 mg/dL (0.1-1.0); Blood Urea Nitrogen 11 mg/dL (8-24); Bun/Creatinine Ratio 19.1 (12.0-20.0); CO2, Blood 20 mmol/L (21-32); Calcium, Blood 8.9 mg/dL (8.5-10.1); Chloride, Blood 106 mmol/L (98-108); Creatinine, Blood 0.58 mg/dL (0.40-1.00); Globulin, Blood 4.4 g/dL (2.2-4.0); Glomerular Filtration Rate 111 (60-); Glucose, Blood 136 mg/dL (70-99); Sodium, Blood 139 mmol/L (136-145)
[2023-04-20] MEDS ORDERED: Mucinex600 MG PO (23:38)
[2023-04-20] MEDS ORDERED: ONDA4ODT MM (23:38)
[2023-04-20 23:45] VITALS: BP 120/72
== END 2023-04-20 23:54 | disposition home or self-care (01) ==
LOC: ER 19:36
PROVIDERS: Emergency Medicine
DX: B34.9 Viral infection, unspecified (principal); I10 Essential (primary) hypertension; M06.9 Rheumatoid arthritis, unspecified; F10.20 Alcohol dependence, uncomplicated; F31.9 Bipolar disorder, unspecified; F43.10 Post-traumatic stress disorder, unspecified; Z79.1 Long term (current) use of non-steroidal anti-inflammatories (NSAID); Z79.899 Other long term (current) drug therapy; Z88.8 Allergy status to other drugs, medicaments and biological substances
CPT/HCPCS: 80053; 83690; 84703; 85025; 93005; 93010; 96361; 96374; 96375; 99285-25; J2060; J2405; J2560; J7030

== ENCOUNTER → 2024-01-29 | Outpatient (CLI) | payer OTHER ==
[~2024-01-29] MED LIST changes: +AMITRIPTYLINE H25 MG PO; +EUTHYROX25 MC1 PO; +Hydroxychloroq200 MG PO; +MUPIROCIN2210 TP; +Mucinex600 MG PO; +ONDA4ODT MM; +PROP10 PO; +Prednisone10 MG PO
[2024-01-29 17:20] LABS: BASOPHILS ABSOLUTE AUTO 0.02 K/mm3 (0.00-0.23); BASOPHILS PERCENT AUTO 0 % (0-2); EOSINOPHILS ABSOLUTE AUTO 0.06 K/mm3 (0.00-0.68); EOSINOPHILS PERCENT AUTO 1 % (0-6); Hematocrit 41.1 % (33.0-51.0); Hemoglobin 14.1 g/dL (11.5-16.0); IMMATURE GRAN ABSOLUTE AUTO 0.02 K/mm3 (0.00-0.10); IMMATURE GRAN PERCENT AUTO 0 % (0-1); LYMPHOCYTES ABSOLUTE AUTO 1.45 K/mm3 (0.84-5.20); LYMPHOCYTES PERCENT AUTO 23 % (21-46); MONOCYTES ABSOLUTE AUTO 0.28 K/mm3 (0.16-1.47); MONOCYTES PERCENT AUTO 4 % (4-13); Mean Corpuscular HGB 33.3 pg (26.0-34.0); Mean Corpuscular HGB Conc 34.3 g/dL (31.5-36.5); Mean Corpuscular Volume 97 fL (80-100); Mean Platelet Volume 12.2 fL (9.1-12.4); NEUTROPHILS ABSOLUTE AUTO 4.53 K/mm3 (1.96-9.15); NEUTROPHILS PERCENT AUTO 71 % (41-73); NRBC ABSOLUTE 0.02 K/mm3 (0.00-0.02); NRBC Auto 0.3 /100 WBC (0.0-0.2); Platelet Count 126 K/mm3 (150-400); RDW Coefficient Variation 13.2 % (11.7-14.2); RDW Standard Deviation 46.7 fL (35.1-46.3); Red Blood Cell Count 4.23 M/mm3 (3.80-5.20); White Blood Cell Count 6.36 K/mm3 (4.00-11.30)
[2024-01-29 17:53] LABS: Bun/Creatinine Ratio 14.7 (12.0-20.0); Calcium, Blood 9.5 mg/dL (8.5-10.1); Creatinine, Blood 0.82 mg/dL (0.40-1.00); Globulin, Blood 4.2 g/dL (2.2-4.0); Potassium, Blood 3.6 mmol/L (3.5-5.5); Total Protein, Blood 8.2 g/dL (6.4-8.2)
== END | disposition home or self-care (01) ==
LOC: LAB 15:50 → LAB SHORT 15:50
PROVIDERS: Internal Medicine Rheumatology
DX: M06.9 Rheumatoid arthritis, unspecified (principal)
CPT/HCPCS: 80053; 85025; 85651

== ENCOUNTER 2024-04-08 11:53 | Inpatient (IN) | payer OTHER ==
[~2024-04-08] VITALS: Ht 180.3 cm; Wt 100.7 kg
[2024-04-08 12:50] LABS: BASOPHILS ABSOLUTE AUTO 0.06 K/mm3 (0.00-0.23); BASOPHILS PERCENT AUTO 1 % (0-2); EOSINOPHILS ABSOLUTE AUTO 0.02 K/mm3 (0.00-0.68); EOSINOPHILS PERCENT AUTO 0 % (0-6); Hematocrit 39.4 % (33.0-51.0); Hemoglobin 12.8 g/dL (11.5-16.0); IMMATURE GRAN ABSOLUTE AUTO 0.14 K/mm3 (0.00-0.10); IMMATURE GRAN PERCENT AUTO 2 % (0-1); LYMPHOCYTES ABSOLUTE AUTO 1.01 K/mm3 (0.84-5.20); LYMPHOCYTES PERCENT AUTO 12 % (21-46); MONOCYTES ABSOLUTE AUTO 1.41 K/mm3 (0.16-1.47); MONOCYTES PERCENT AUTO 16 % (4-13); Mean Corpuscular HGB 34.3 pg (26.0-34.0); Mean Corpuscular HGB Conc 32.5 g/dL (31.5-36.5); Mean Corpuscular Volume 106 fL (80-100); Mean Platelet Volume 11.5 fL (9.1-12.4); NEUTROPHILS ABSOLUTE AUTO 6.14 K/mm3 (1.96-9.15); NEUTROPHILS PERCENT AUTO 70 % (41-73); Platelet Count 178 K/mm3 (150-400); RDW Coefficient Variation 15.4 % (11.7-14.2); RDW Standard Deviation 59.4 fL (35.1-46.3); Red Blood Cell Count 3.73 M/mm3 (3.80-5.20); White Blood Cell Count 8.78 K/mm3 (4.00-11.30)
[2024-04-08 13:18] LABS: Albumin, Blood 3.4 g/dL (3.4-5.0); Albumin/Globulin Ratio 0.7 (0.8-1.8); Bilirubin, Total 1.2 mg/dL (0.1-1.0); Bun/Creatinine Ratio 8.4 (12.0-20.0); Creatinine, Blood 0.83 mg/dL (0.40-1.00); Globulin, Blood 4.7 g/dL (2.2-4.0); Potassium, Blood 3.9 mmol/L (3.5-5.5); Total Protein, Blood 8.1 g/dL (6.4-8.2)
[2024-04-08] MEDS ORDERED: Thiamine HCl 100 MG Tab PO ONE (17:55)
[2024-04-08] MEDS ORDERED: Ondansetron HCl 2 MG / ML 2ML Vial IV ONE (17:55)
[2024-04-08] MEDS ORDERED: NS 1,000 ML IV SCH ×2 (17:55→20:55)
[2024-04-08] MEDS ORDERED: Folic Acid 1 MG TAB PO ONE (17:55)
[2024-04-08] MEDS ORDERED: LORazepam 2 MG/ML 1ML Injection IV ONE (18:00)
[2024-04-08] MEDS ORDERED: Magnesium Sulf 2 GM/Water 50ML 50 ML IV ONE (19:05)
[2024-04-08 19:19] LABS: Influenza A, PCR NEGATIVE (NEGATIVE); Influenza B, PCR NEGATIVE (NEGATIVE); Resp Syncytial Virus, PCR NEGATIVE (NEGATIVE); SARS-Cov-2 (COVID-19) PCR, MMC NEGATIVE (NEGATIVE)
[2024-04-08] MEDS ORDERED: FLU VACC TS2024-25(6MOS UP)/PF 45 MCG/0.5 ML SYRINGE IM ONE (20:55)
[2024-04-08] MEDS ORDERED: Ondansetron HCl 2 MG / ML 2ML Vial IV PRN (20:55)
[2024-04-08] MEDS ORDERED: ChlordiazePOXIDE 25 MG Cap PO PRN ×2 (21:00)
[2024-04-08] MEDS ORDERED: LORazepam 2 MG/ML 1ML Injection IV PRN ×2 (21:00)
[2024-04-08 23:00] VITALS: BP 117/62
[2024-04-09] MEDS ORDERED: ChlordiazePOXIDE 25 MG Cap PO PRN (03:05)
[2024-04-09] MEDS ORDERED: LORazepam 2 MG/ML 1ML Injection IV PRN (03:05)
[2024-04-09 03:22] VITALS: BP 115/65
[2024-04-09 05:56] LABS: Magnesium, Blood 1.8 mg/dL (1.6-2.4)
[2024-04-09 05:57] LABS: Albumin, Blood 2.6 g/dL (3.4-5.0); Albumin/Globulin Ratio 0.7 (0.8-1.8); Bilirubin, Total 1.1 mg/dL (0.1-1.0); Bun/Creatinine Ratio 11.4 (12.0-20.0); Calcium, Blood 9.1 mg/dL (8.5-10.1); Creatinine, Blood 0.79 mg/dL (0.40-1.00); Globulin, Blood 3.9 g/dL (2.2-4.0); Potassium, Blood 3.3 mmol/L (3.5-5.5); Total Protein, Blood 6.5 g/dL (6.4-8.2)
[2024-04-09] MEDS ORDERED: Levothyroxine Sodium 0.075 MG Tab PO SCH (06:00)
[2024-04-09] MEDS ORDERED: Pantoprazole Sodium 40 MG Tab PO SCH (06:00)
--- NOTE | 2024-04-09 06:02 | NUR ---
SHIFT SUMMARY PT ADMITTED TO ROOM 361 AT 2300. PT HAD BEEN MEDICATED PER CIWA IN THE ED PRIOR TO TRANSFERING TO MEDICAL UNIT. ACCOMPANIED PT TO ROOM. PT DROWSY AND CALM UPON ADMISSION. SLEPT LONG INTERVALS THROUGH THE NIGHT. PT SOMEWHAT IMPULSIVE WITH URINARY URGENCY. INCONT X1. BED ALARM ON. TELEMETRY WITH SINUS RHYTHM. PT WITH CIWA SCORE OF 9 AT 0400, MEDICATED WITH LIBRIUM PER EMAR. PT CURRENTLY RESTING WITH EYES CLOSED. BED IN LOWEST POSITION, SEIZURE PADS ON BED, SUCTION AVAILABLE, CALL LIGHT WITHIN REACH, SIDE RAILS UP X2.
[2024-04-09 07:19] VITALS: BP 110/64
[2024-04-09] MEDS ORDERED: Potassium Chloride 20 MEQ TabCR PO ONE (08:05)
[2024-04-09] MEDS ORDERED: Amylase/Lipase/Protease DR Cap 12,000 PO SCH (08:30)
[2024-04-09] MEDS ORDERED: Multivitamins 1 Tab PO SCH (09:00)
[2024-04-09] MEDS ORDERED: Gabapentin 300 MG Cap PO SCH (09:00)
[2024-04-09] MEDS ORDERED: Folic Acid 1 MG TAB PO SCH (09:00)
[2024-04-09] MEDS ORDERED: Enoxaparin 40 MG/0.4 ML SYR SC SCH (09:00)
[2024-04-09] MEDS ORDERED: Spironolactone 25 MG Tab PO SCH (09:00)
[2024-04-09] MEDS ORDERED: Thiamine HCl 100 MG Tab PO SCH (09:00)
[2024-04-09] MEDS ORDERED: Hydroxychloroquine Sulfate 200 MG Tab PO SCH (09:00)
[2024-04-09 12:39] VITALS: BP 135/111
--- NOTE | 2024-04-09 12:46 | NUR ---
CALL PLACED TO DR SKELTON TO NOTIFY PATIENT CONTINUING TO COUGH, C/O SOB, WHEEZE TO RIGHT UPPER LUNG. VITAL SIGNS STABLE. PATIENT STATES SHE HAS USED INHALERS IN THE PAST BUT NOT FOR A LONG TIME. STATES SHE QUIT SMOKING ABOUT 10 YEARS AGO. WAITING FOR CALL BACK.
[2024-04-09 15:20] VITALS: BP 101/54
[2024-04-09] MEDS ORDERED: Albuterol 2.5 MG/3 ML VIAL INH PRN (15:35)
[2024-04-10 03:08] VITALS: BP 116/68
--- NOTE | 2024-04-10 06:09 | NUR ---
SHIFT SUMMARY PT CONTINUES TO SHOW SIGNS OF ETOH WITHDRAWAL. CIWA SCORE 8-11- MEDICATED PER EMAR. PT STATED LIBRIUM DOES NOT HELP HER VERY MUCH, PREFERS ATIVAN. PT SLEPT INTERMITTENTLY THROUGH THE NIGHT. AT BEDSIDE. PT HAD SOME URINARY INCONTINENCE EPISODES. PT AMBULATES TO THE BATHROOM WITH FWW AND 1 ASSIST. BED IN LOWEST POSITION. CALL LIGHT WITHIN REACH, SIDE RAILS UP X2.
[2024-04-10 06:30] LABS: Hematocrit 32.6 % (33.0-51.0); Hemoglobin 10.2 g/dL (11.5-16.0); Mean Corpuscular HGB 34.1 pg (26.0-34.0); Mean Corpuscular HGB Conc 31.3 g/dL (31.5-36.5); Mean Corpuscular Volume 109 fL (80-100); Mean Platelet Volume 11.3 fL (9.1-12.4); Platelet Count 199 K/mm3 (150-400); Red Blood Cell Count 2.99 M/mm3 (3.80-5.20); White Blood Cell Count 4.52 K/mm3 (4.00-11.30)
[2024-04-10 06:49] LABS: Albumin, Blood 2.7 g/dL (3.4-5.0); Anion Gap 10 mmol/L (3-11); Blood Urea Nitrogen 8 mg/dL (8-24); Bun/Creatinine Ratio 11.3 (12.0-20.0); CO2, Blood 22 mmol/L (21-32); Calcium, Blood 8.9 mg/dL (8.5-10.1); Chloride, Blood 114 mmol/L (98-108); Creatinine, Blood 0.71 mg/dL (0.40-1.00); Glomerular Filtration Rate 104 (60-); Glucose, Blood 114 mg/dL (70-99); Phosphorus, Blood 4.3 mg/dL (2.5-4.9); Potassium, Blood 3.7 mmol/L (3.5-5.5); Sodium, Blood 142 mmol/L (136-145); Thyroxine (T4) 8.8 ug/dL (4.8-13.9)
[2024-04-10 07:56] VITALS: BP 119/79
[2024-04-10] MEDS ORDERED: Benzonatate 100 MG Cap PO PRN (12:15)
[2024-04-10] MEDS ORDERED: Prochlorperazine Edisylate 10 mg Vial IV PRN (12:15)
[2024-04-10] MEDS ORDERED: PredniSONE 20 MG Tab PO SCH (13:00)
[2024-04-10 15:52] VITALS: BP 109/66
--- NOTE | 2024-04-10 18:02 | NUR ---
SHIFT SUMMARY PATIENT ABLE TO AMBULATE TO BATHROOM WITH 1 ASSIST AND WALKER. CONTINUING TO MONITOR CIWA, SCORING 6-18 THIS SHIFT. CONTINUED C/O NAUSEA AND VOMITING, DOC OKAYED CHANGE TO COMPAZINE FROM ZOFRAN, TOLERATING WELL, LESSENED C/O NAUSEA WITH NO FURTHER VOMITING WITH ONE DOSE. AT BEDSIDE MOST OF SHIFT, BOUNDRIES SET WITH HIM FOR SPEAKING FOR PATIENT AND OVER PATIENT. BROUGHT IN PAPERWORK FROM [facility] WITH INSTRUCTIONS FOR FOLLOW UP TO HAVE ULTRASOUND ELASTOGRAPHY OF THE LIVER, NO TIME FRAME NOTED ON PAPERWORK. A/OX4. BM THIS SHIFT, YELLOW BROWN SOFT. DISTENDED ABDOMEN, FIRM, GOOD BOWEL TONES. C/O COUGH, LUNG SOUNDS WHEEZY, GIVEN TESSALON PEARLS WITH GOOD RELIEF. ABLE TO MAKE NEEDS KNOWN. CALL LIGHT IN REACH, CARES ONGOING.
[2024-04-10 19:44] VITALS: BP 126/63
[2024-04-10] MEDS ORDERED: GuaiFENesin 600 MG TabCR PO SCH (21:00)
[2024-04-11 04:24] VITALS: BP 111/62
[2024-04-11 05:11] LABS: Hematocrit 30.5 % (33.0-51.0); Hemoglobin 9.7 g/dL (11.5-16.0); Mean Corpuscular HGB 34.2 pg (26.0-34.0); Mean Corpuscular HGB Conc 31.8 g/dL (31.5-36.5); Mean Corpuscular Volume 107 fL (80-100); Mean Platelet Volume 11.1 fL (9.1-12.4); Platelet Count 235 K/mm3 (150-400); RDW Coefficient Variation 14.5 % (11.7-14.2); RDW Standard Deviation 57.6 fL (35.1-46.3); Red Blood Cell Count 2.84 M/mm3 (3.80-5.20); White Blood Cell Count 5.12 K/mm3 (4.00-11.30)
--- NOTE | 2024-04-11 05:28 | NUR ---
SHIFT SUMMARY PT'S CIWA SCORES THROUGH NIGHT RANGED BETWEEN 8-11. MEDICATED PER EMAR. PT WITH MILD NAUSEA, BUT NO EMESIS DURING THE NIGHT. PT HAD NO C/O SOB DURING THE SHIFT, AND ONLY OCC. DRY COUGH. VISITING UNTIL ALMOST MIDNIGHT. REMINDED TO ALLOW PT TO ANSWER QUESTIONS ASKED OF HER, AND NOT TO ANSWER FOR HER. PT SLEPT LONG INTERVALS AFTER MIDNIGHT. PT CONTINUES TO HAVE URINARY URGENCY, BUT HAVING LESS INCONT. EPISODES. PT AMBULATING TO BATHROOM WITH SBA, SHE STATES, "I THINK I'M GETTING STRONGER". BED ALARM ON, BED IN LOWEST POSITION, CALL LIGHT WITHIN REACH, SIDERAILS UP X2.
[2024-04-11 05:40] LABS: Albumin, Blood 2.6 g/dL (3.4-5.0); Anion Gap 11 mmol/L (3-11); Blood Urea Nitrogen 6 mg/dL (8-24); Bun/Creatinine Ratio 9.4 (12.0-20.0); CO2, Blood 23 mmol/L (21-32); Calcium, Blood 8.9 mg/dL (8.5-10.1); Chloride, Blood 114 mmol/L (98-108); Creatinine, Blood 0.64 mg/dL (0.40-1.00); Glomerular Filtration Rate 108 (60-); Glucose, Blood 146 mg/dL (70-99); Magnesium, Blood 1.9 mg/dL (1.6-2.4); Phosphorus, Blood 3.4 mg/dL (2.5-4.9); Potassium, Blood 3.8 mmol/L (3.5-5.5); Sodium, Blood 144 mmol/L (136-145)
[2024-04-11 07:36] VITALS: BP 105/60
--- NOTE | 2024-04-11 11:30 | NUR ---
MORNING NOTE THIS RN ASSUMED CARE AT APPROX 0715. PATIENT SLEEPING, EASILY AROUSABLE WITH VERBAL STIMULI. ALERT AND ORIENTED X4. CIWA OF 9 THIS MORNING - REPORTING HEADACHE, TREMOR TO BUE, NAUSEA, AND OCCASIONAL VISUAL HALLUCINATIONS. MEDICATED PER EMAR WITH PO LIBRIUM AND IV ATIVAN - REPORTING IMPROVEMENT IN WITHDRAWAL SYMPTOMS AT THIS TIME. VSS. TELEMETRY SHOWING SINUS 70s PER CRM SYSTEM ADMINISTRATOR. DENIES CHEST PAIN, PRESSURE. UP WITH SBA TO BATHROOM. EXPERIENCES URINARY URGE INCONTINENCE - CHANGING PULL UP ATTENDS PRN. CALL LIGHT IN REACH. AT BEDSIDE.
[2024-04-11 15:44] VITALS: BP 118/80
--- NOTE | 2024-04-11 17:06 | NUR ---
SHIFT SUMMARY NO ACUTE EVENTS SINCE MORNING NOTE. PATIENT REMAINS ALERT AND ORIENTED X4. CIWA 5-12 TODAY - SEE CIWA DOCUMENTATION. MANAGING PER EMAR WITH PO LIBRIUM AND IV ATIVAN. TELEMETRY SHOWING SINUS 70s-90s. NO EVENTS REPORTED BY CHEMISTRY QUALITY CONTROL TECHNICIAN. SBP 100s-110s. MAP >65. DENIES CHEST PAIN, PRESSURE. REMAINS ON ROOM AIR. EXPERIENCES OCCASIONAL EPISODES OF A DRY, NONPRODUCTIVE COUGH. UP TO RESTROOM WITH SBA FWW. VOIDING - CHANGING PULL UP ATTENDS PRN TO KEEP C/D/I. X1 BM TODAY. REPOSITIONS HERSELF INDPENDENTLY IN BED. DECLINED SHOWERING TODAY. CALL LIGHT IN REACH. AT BEDSIDE THROUGHOUT DAY. WILL CONTINUE TO MONITOR AND REPORT TO ONCOMING RN.
[2024-04-11 20:05] VITALS: BP 122/74
[2024-04-12 04:16] VITALS: BP 115/61
[2024-04-12 04:53] LABS: Hematocrit 32.4 % (33.0-51.0); Hemoglobin 10.4 g/dL (11.5-16.0); Mean Corpuscular HGB 34.2 pg (26.0-34.0); Mean Corpuscular HGB Conc 32.1 g/dL (31.5-36.5); Mean Corpuscular Volume 107 fL (80-100); Mean Platelet Volume 11.1 fL (9.1-12.4); Platelet Count 287 K/mm3 (150-400); RDW Coefficient Variation 14.6 % (11.7-14.2); RDW Standard Deviation 56.8 fL (35.1-46.3); Red Blood Cell Count 3.04 M/mm3 (3.80-5.20); White Blood Cell Count 5.96 K/mm3 (4.00-11.30)
[2024-04-12 05:51] LABS: Albumin, Blood 2.7 g/dL (3.4-5.0); Albumin/Globulin Ratio 0.7 (0.8-1.8); Bilirubin, Total 0.6 mg/dL (0.1-1.0); Bun/Creatinine Ratio 11.7 (12.0-20.0); Calcium, Blood 8.5 mg/dL (8.5-10.1); Creatinine, Blood 0.68 mg/dL (0.40-1.00); Globulin, Blood 3.8 g/dL (2.2-4.0); Potassium, Blood 3.8 mmol/L (3.5-5.5); Total Protein, Blood 6.5 g/dL (6.4-8.2)
--- NOTE | 2024-04-12 05:54 | NUR ---
SHIFT SUMMARY CIWA SCORES THROUGH THE NIGHT RANGED FROM 9-12, MEDICATED PER EMAR. HALLUCINATIONS LESS THAN PREVIOUS SHIFTS. PT ABLE TO SLEEP LONG INTERVALS. PT UP TO BATHROOM WITH SBA. PT STATES SHE FEELS MUCH STRONGER, ALTHOUGH STILL "WOBBLY" WHEN WALKING. SOME URGE INCONTINECE- DEPENDS CHAGED PRN. BED ALARM ON, BED IN LOWEST POSITION, CALL LIGHT WITHIN REACH, SIDERAILS UP X2.
[2024-04-12 07:38] VITALS: BP 100/58
[2024-04-12] MEDS ORDERED: Loperamide HCl 2 MG Cap PO PRN (14:45)
[2024-04-12 16:02] VITALS: BP 113/68
[2024-04-12] MEDS ORDERED: MULVITA PO (16:34)
[2024-04-12] MEDS ORDERED: POTA10T PO (16:35)
[2024-04-12] MEDS ORDERED: B-121000 MC6 SL (16:36)
[2024-04-12] MEDS ORDERED: HYDHCL25 PO (16:38)
[2024-04-12] MEDS ORDERED: FOLI1 PO (16:40)
[2024-04-12] MEDS ORDERED: LATUDA40 M1 PO (16:41)
[2024-04-12] MEDS ORDERED: GABA300 PO (16:42)
[2024-04-12] MEDS ORDERED: B-1 PO (16:43)
[2024-04-12] MEDS ORDERED: Naltrexone HCl50 MG PO (16:46)
[2024-04-12] MEDS ORDERED: FERSU300 PO (16:48)
[2024-04-12] MEDS ORDERED: PRENATAL TABLE1 EAC2 PO (16:48)
[2024-04-12] MEDS ORDERED: FURO20 PO (16:50)
--- NOTE | 2024-04-12 17:45 | NUR ---
SHIFT SUMMARY: PT A&O X4. PLEASANT AND COOPERATIVE WITH CARE. PT NPO FROM 0615 TO 1215 TODAY FOR LIVER ULTRASOUND. Q4 CIWA COMPLETED WITH SCORES OF 9, 12, AND 10. PT STATED SHE WAS HAVING INCREASED VISUAL HALLUCINATIONS WITH "LANGFORD MOVING FORWARD" AND "BLOOD COMING FROM CEILING." MEDICATED WITH PRN LIBRIUM AND ATIVAN. PT C/O DIARRHEA THIS SHIFT. SPOKE WITH HOSPITALIST WHO PLACED ORDER FOR IMMODIUM. MEDS PROVIDED PER EMAR. PT ALSO C/O DRY COUGH. MEDICATED WITH PRN TESSALON. FAXED [facility] REQUESTING UPDATED MED REC. [facility] FAXED MED REC AND WAS ABLE TO COMPLETE. TELE IN PLACE RUNNING SINUS RHYTHM. CALL LIGHT IN REACH. BED IN LOWEST POSITION.
[2024-04-12 19:52] VITALS: BP 108/66
[2024-04-13 04:20] VITALS: BP 96/56
--- NOTE | 2024-04-13 04:29 | NUR ---
SHIFT SUMMARY ADMITTED FOR ETOH WITHDRAWALS. FULL CODE. I HAVE BEEN ALTERNATING LIBRIUM AND ATIVAN. REGULAR DIET. ON RA. Q4 CIWA'S. STANDBY ASSIST -BRP. TELEMETRY: NSR @ 86 BPM. SHE STATES SHE IS STILL HAVING VISUAL HALLUCINATIONS. HX: CIRRHOSIS, PANCREATITIS, RECENT DC FROM [facility] FOR ETOH/GI BLEED ON 04/08/24. SHE REPORTED DIARRHEA ON PREVIOUS SHIFT. BUT SHE DID NOT REPORT IT FOR ME.
[2024-04-13 07:55] VITALS: BP 106/63
[2024-04-13] MEDS ORDERED: Gabapentin 300 MG Cap PO SCH (09:00)
[2024-04-13] MEDS ORDERED: B-1100 M1 PO (12:31)
[2024-04-13] MEDS ORDERED: BENZ100A PO (12:33)
[2024-04-13] MEDS ORDERED: CHLO25 PO (12:34)
[2024-04-13] MEDS ORDERED: GUAI600T33 PO (12:35)
[2024-04-13] MEDS ORDERED: CREON DR 12,001 EACH PO (12:36)
[2024-04-13] MEDS ORDERED: LOPE2C PO (12:37)
[2024-04-13] MEDS ORDERED: PRED20 PO (12:37)
--- NOTE | 2024-04-13 15:49 | NUR ---
DISCHARGE/NOTE: PT AND UPSET ABOUT DISCHARGE ORDER BEING PLACED. PER , IN THE PAST IT HAS TAKEN 2-3 WEEKS FOR W/D SYMPTOMS TO DISSIPATE. WHEN WALKING INTO PT ROOM PT APPEARS TO HAVE NO SYMPTOMS OF W/D. PT DOES NOT DISCUSS ANY HALLUCINATIONS, NO TREMORS NOTED, NO ANXIETY, OR HEADACHE ON ENCOUNTERS. WHEN PERFORMING CIWA PER PROTOCOL, PT DISCUSSES MULTIPLE VISUAL HALLUCINATIONS, "SEVERE HEADACHE THAT FORMS IN THE FRONT OF THE HEAD", AND BEGINS SHAKING AT BEGINNING OF ASSESSMENT. DUE TO PT STATEMENTS, SCORES OF 9-12 HAVE BEEN OBTAINED. NO SEVERE SYMPTOMS WITNESSED BY THIS RN. PT D/C @1530 VIA WHEELCHAIR WITH . PT AND STILL UPSET WITH DISCHARGE PLAN. DISCUSSED NEW MEDICATIONS WITH PT. ALSO DISCUSSED THAT HOME HEALTH WOULD BE ARRIVING FOR ASSISTANCE. IV PULLED BY PT PRIOR TO D/C. TELE SENT BACK. HARD SCRIPT FOR LIBRIUM FAXED AND SENT WITH PT IN D/C PACKET. NO QUESTIONS AT TIME OF D/C.
== END 2024-04-13 15:35 | disposition home health service (06) | DRG 897 ==
LOC: ER 11:53 → MEDS 23:17 → ENPENDDIS 04-13 12:03 → MEDS 04-13 15:35
PROVIDERS: Internal Medicine; Nurse Practitioner Acute Care; Physician Assistant; Student in an Organized Health Care Education/Training Program; ADMIT Internal Medicine
PROC: HZ2ZZZZ Detoxification Services for Substance Abuse Treatment (ICD-10-PCS; principal; 2024-04-08)
DX: F10.239 Alcohol dependence with withdrawal, unspecified (principal); F10.251 Alcohol dependence with alcohol-induced psychotic disorder with hallucinations; K70.30 Alcoholic cirrhosis of liver without ascites; F10.229 Alcohol dependence with intoxication, unspecified; E83.42 Hypomagnesemia; K21.9 Gastro-esophageal reflux disease without esophagitis; E03.9 Hypothyroidism, unspecified; M06.9 Rheumatoid arthritis, unspecified; M32.9 Systemic lupus erythematosus, unspecified; I10 Essential (primary) hypertension; F31.9 Bipolar disorder, unspecified; F43.10 Post-traumatic stress disorder, unspecified; R00.0 Tachycardia, unspecified; E87.6 Hypokalemia; K70.0 Alcoholic fatty liver; R53.81 Other malaise; G89.4 Chronic pain syndrome; Z98.890 Other specified postprocedural states; Z88.8 Allergy status to other drugs, medicaments and biological substances; Z79.890 Hormone replacement therapy; Z79.899 Other long term (current) drug therapy; Z79.52 Long term (current) use of systemic steroids; Z90.49 Acquired absence of other specified parts of digestive tract; Z90.89 Acquired absence of other organs; Z98.51 Tubal ligation status; Z90.710 Acquired absence of both cervix and uterus; Z28.21 Immunization not carried out because of patient refusal
CPT/HCPCS: 0241U; 36415; 71045; 76981; 80053; 80069; 80320; 82140; 82607; 82728; 82746; 83735; 84436; 84443; 85025; 85027; 93005; 93010; 94640; 94664; 94760; 96365; 96375; 96376; 97110; 97116; 97162; 99285-25; A9270; G0378; J0780; J1650; J2060; J2405; J3475; J7030; J7512

== ENCOUNTER → 2024-06-11 | Outpatient (CLI) | payer OTHER ==
[~2024-06-11] MED LIST changes: +B-1 PO; +B-1100 M1 PO; +B-121000 MC6 SL; +BENZ100A PO; +CREON DR 12,001 EACH PO; +FERSU300 PO; +GABA300 PO; +GUAI600T33 PO; +HYDHCL25 PO; +LATUDA40 M1 PO; +LOPE2C PO; +MULVITA PO; +Naltrexone HCl50 MG PO; +POTA10T PO
[2024-06-11 20:38] LABS: Bacterial Vaginosis PCR Negative (NEGATIVE); Candida Group, PCR NOT DETECTED (NOT DETECT); Candida glabrata-krusei, PCR NOT DETECTED (NOT DETECT)
== END ==
LOC: LAB SHORT 18:48 → LAB 18:48
PROVIDERS: General Practice
DX: N89.8 Other specified noninflammatory disorders of vagina (principal)
CPT/HCPCS: 81515

== ENCOUNTER → 2024-07-29 | Outpatient (CLI) | payer OTHER ==
[2024-07-29 16:38] LABS: BASOPHILS ABSOLUTE AUTO 0.05 K/mm3 (0.00-0.23); BASOPHILS PERCENT AUTO 0 % (0-2); EOSINOPHILS ABSOLUTE AUTO 0.15 K/mm3 (0.00-0.68); EOSINOPHILS PERCENT AUTO 1 % (0-6); Hematocrit 40.4 % (33.0-51.0); Hemoglobin 13.4 g/dL (11.5-16.0); IMMATURE GRAN ABSOLUTE AUTO 0.04 K/mm3 (0.00-0.10); IMMATURE GRAN PERCENT AUTO 0 % (0-1); LYMPHOCYTES ABSOLUTE AUTO 2.87 K/mm3 (0.84-5.20); LYMPHOCYTES PERCENT AUTO 18 % (21-46); MONOCYTES ABSOLUTE AUTO 0.77 K/mm3 (0.16-1.47); MONOCYTES PERCENT AUTO 5 % (4-13); Mean Corpuscular HGB 31.8 pg (26.0-34.0); Mean Corpuscular HGB Conc 33.2 g/dL (31.5-36.5); Mean Corpuscular Volume 96 fL (80-100); Mean Platelet Volume 11.7 fL (9.1-12.4); NEUTROPHILS ABSOLUTE AUTO 11.85 K/mm3 (1.96-9.15); NEUTROPHILS PERCENT AUTO 75 % (41-73); Platelet Count 197 K/mm3 (150-400); RDW Standard Deviation 41.9 fL (35.1-46.3); Red Blood Cell Count 4.22 M/mm3 (3.80-5.20); White Blood Cell Count 15.73 K/mm3 (4.00-11.30)
[2024-07-29 16:46] LABS: Albumin, Blood 4.2 g/dL (3.4-5.0); Albumin/Globulin Ratio 1.2 (0.8-1.8); Bilirubin, Total 0.6 mg/dL (0.1-1.0); Bun/Creatinine Ratio 22.9 (12.0-20.0); Calcium, Blood 9.7 mg/dL (8.5-10.1); Creatinine, Blood 0.83 mg/dL (0.40-1.00); Globulin, Blood 3.5 g/dL (2.2-4.0); Potassium, Blood 3.5 mmol/L (3.5-5.5); Total Protein, Blood 7.7 g/dL (6.4-8.2)
== END ==
LOC: LAB SHORT 14:25 → LAB 14:25
PROVIDERS: Internal Medicine Rheumatology
DX: M06.9 Rheumatoid arthritis, unspecified (principal)
CPT/HCPCS: 80053; 85025; 85651